=== PATIENT | female | born 1985 | race Caucasian/White ===

== ENCOUNTER 2022-10-10 15:43 | Emergency (ER) | payer MEDICAID, OTHER ==
[~2022-10-10] VITALS: Ht 175.3 cm; Wt 145.4 kg
[2022-10-10] MEDS ORDERED: DICYCLOMINE HCL (10MG/ML) 2 ML AMPULE IM ONE (16:00)
[2022-10-10] MEDS ORDERED: ONDANSETRON ODT 4 MG TAB PO ONE (16:00)
[2022-10-10 16:05] LABS: Basophils # (auto) 0 10 ^3/uL (0-0.2); Basophils % (auto) 0.4 % (0.0-2.0); Eosinophils # (auto) 0.3 10 ^3/uL (0-0.8); Eosinophils % (auto) 3.2 % (0.0-7.0); Hematocrit 43.1 % (36.0-46.0); Hemoglobin 14.3 g/dL (12.2-16.2); Lymphocytes # (auto) 3.2 10 ^3/uL (0.4-5.4); Lymphocytes % (auto) 34.2 % (10.0-50.0); Mean Corpuscular Hemoglobin 31.3 pg (28.0-32.0); Mean Corpuscular Hgb Conc. 33.2 g/dL (32.0-36.0); Mean Corpuscular Volume 94.5 fL (80.0-100.0); Monocytes # (auto) 0.6 10 ^3/uL (0-1.3); Monocytes % (auto) 6.2 % (0.0-12.0); Neutrophils # (auto) 5.2 10 ^3/uL (1.6-8.6); Nucleated Red Blood Cells % 0.1 %; Red Blood Cells 4.57 10^6/uL (4.0-5.20); White Blood Cell 9.4 10^3/uL (4.4-10.8)
[2022-10-10 16:14] LABS: BUN/Creatinine Ratio 10.5; Calcium 9.1 mg/dL (8.5-10.1); Potassium 4.1 mmol/L (3.5-5.1)
[2022-10-10 16:15] LABS: Albumin 3.4 g/dL (3.4-5.0)
[2022-10-10 16:17] LABS: Bilirubin, Total 0.4 mg/dL (0.2-1.0); Total Protein 7.5 g/dL (6.4-8.2)
[2022-10-10 20:48] LABS: Urine Bacteria FEW /hpf (None Seen); Urine Blood Negative /uL (Negative); Urine Mucus FEW (None Seen); Urine Specific Gravity 1.026 (1.001-1.035); Urine WBC 4 /hpf (0 - 5)
[2022-10-10] MEDS ORDERED: HYDROcodone-ACET 10/325MG TAB PO ONE (22:00)
[2022-10-11] MEDS ORDERED: IBUP800T26 PO (00:05)
[2022-10-11] MEDS ORDERED: HYDR-3651 OR (00:05)
[2022-10-11 00:15] VITALS: BP 97/72
== END 2022-10-11 00:20 | disposition home or self-care (01) ==
LOC: ER 15:43
DX: K76.0 Fatty (change of) liver, not elsewhere classified (principal)
CPT/HCPCS: 36415; 74176; 80053; 81001; 83690; 83880; 84484; 85025; 96372; 99285; J0500; Q0162

== ENCOUNTER 2025-06-17 12:54 | Emergency (ER) | payer MEDICAID ==
[~2025-06-17] VITALS: Ht 175.3 cm; Wt 141.1 kg
[~2025-06-17 12:54] MED LIST: HYDR-3651 OR; IBUP-1455 PO
[2025-06-17 13:26] LABS: Hematocrit 42.6 % (36.0-46.0); Hemoglobin 14.2 g/dL (12.2-16.2); Mean Corpuscular Hemoglobin 31.4 pg (28.0-32.0); Mean Corpuscular Volume 94.1 fL (80.0-100.0); Nucleated Red Blood Cells % 0.1 %
[2025-06-17 13:40] LABS: Alanine Aminotransferase 14 U/L (7-40); Albumin 4.4 g/dL (3.2-4.8); Alkaline Phosphatase 91 U/L (46-116); Anion Gap 9 (5-15); BUN/Creatinine Ratio 7.4 (10.0-20.0); Bilirubin, Total 0.5 mg/dL (0.2-1.0); Carbon Dioxide 27 mmol/L (20-31); Chloride 107 mmol/L (98-107); Glucose 89 mg/dL (74-106); Potassium 3.8 mmol/L (3.5-5.1); Sodium 143 mmol/L (136-145); Total Protein 7.7 g/dL (5.7-8.2)
--- NOTE | 2025-06-17 13:41 | DVH ---
INDICATION: Right upper quadrant TECHNIQUE: Multiple real-time sonographic images of the abdomen were obtained. COMPARISON: None FINDINGS: Increased echogenicity of the hepatic parenchyma suggesting steatosis.. The liver measures 14.01 cm. No intrahepatic biliary ductal dilatation is noted. Gallbladder is surgically removed. Common bile duct measures 8.04 mm The right kidney measures 9.35 cm. No hydronephrosis. The pancreas is not well visualized due to obscuration from bowel gas. The visualized portions of the IVC and aorta are grossly unremarkable. IMPRESSION: 1. 14 cm liver with changes suggesting steatosis 2. Gallbladder has been surgically removed 3. Right kidney measures 9.35 cm. There is no hydronephrosis
[2025-06-17 13:43] LABS: Blood Urea Nitrogen 6 mg/dL (9-23)
[2025-06-17 13:55] LABS: Calcium 8.9 mg/dL (8.7-10.4)
[2025-06-17 14:02] LABS: Lipase 34 U/L (12-53)
--- NOTE | 2025-06-17 15:04 | ED.PDOC ---
GI ASSESSMENT HPI Comments HPI: Amalia 39 y.o female presents to the ED for a complaint of RUQ and LLQ pain that radiates to her back and pelvic region x 2 months. Patient reports pain worsens when she is sitting and improves when she stands up. Patient too an at home test 2 days resulting negative. She denies any nausea, vomiting, d iarrhea, fever, chills, or any other symptom. Past Medical History: Asthma and liver cirrhosis. Past Surgical History: Cholecystectomy Social History:Tobacco abuse Allergies: Denies [place]: ABD PAIN HPI: Poor Historian. Painful the last two months intermittent was when she sits down resolves when she stands up. History of liver cirrhosis. REVIEW OF SYSTEMS: CONSTITUTIONAL: Denies acute: fever, diaphoresis, chills, generalized weakness. HEAD: Denies acute: headache, photophobia Eyes: Denies acute: Double vision, vision loss, eye pain, eye discharge. EARS: Denies acute: tinnitus, hearing loss, ear discharge, ear pain, THROAT: Denies acute: sore throat, swelling, difficulty swallowing , pain with swallowing, change in voice. NECK: Denies acute: neck pain, neck swelling, stiff neck. HEART: Denies acute : chest pain, palpitations, LUNGS: Denies acute: SOB, wheezing, cough, hemoptysis ABDOMEN: Denies acute: Nausea, Vomiting, diarrhea, melena , hematemesis, hematochezia SKIN: Denies acute: rash, redness, lesions, itchiness. EXTREMITIES: Denies acute: calf pain, numbness, tingling, weakness, denies pain in extremity. Denies acute: Low back pain. Neuro: Denies acute: focal neurological deficit, motor or sensory focal neurological deficit, tremors, seizure like activity, confusion, dizziness, change in mental status, loss of bowel or bladder function, cauda equina like symptoms. : Denies acute: dysuria, hematuria, flank pain, increase in urinary frequency. PSYCH: Denies acute: hallucination, suicidal ideation, homicidal ideation. FEMALE: Denies acute: abnormal vaginal bleeding, foul odor, unusual discharge. PHYSICAL EXAM: General: ----mild----acute distress, awake and alert. Head: normocephalic, atraumatic. Neck: supple, trachea is midline, no swelling. Throat: Normal phonation. Eyes:, no erythema, no purulent discharge, no proptosis, no icterus. Heart: regular rate, regular rhythm, no significant murmur appreciated. Lungs: no apparent respiratory distress, Able to speak in full sentences. No wheezing, no rhonchi, no crackles. No stridors Clear to auscultation bilaterally. Abdomen: Right upper quad tender to palpation, non distended, soft, no guarding, no rebound, + bowel sounds. Morbidly obese Neuro: Awake, Alert, oriented to name, self, situation, follows commands GCS=15. Speech is normal. Skin: no petechia, no purpura, no cyanosis, non-pale, not jaundice. Lower extremities: --no - Pitting edema no deformity, no focal swelling, no calf TTP. Makes eye contact. moves all four extremities. Face: no apparent facial droop. No CVA tenderness to percussion bilaterally. Ambulating in the ED independently. ED COURSE: DISCLAIMER: This medical document was created using an electronic medical record system with voice recognition software and computerized dictation system. Although this document has been carefully reviewed, there might still be some phonetic and typographical errors. Occasional wrong-word or "sound-alike" substitutions may have occurred due to the inherent limitations of voice recognition software. These areas are purely typographical due to imperfections of the software programs and do not reflect any compromise in the patient's medical care. Please read the chart carefully and recognize, using context, where these substitutions have occurred. Chief Complaint: Abdominal Pain Time Seen by MD: 14:57 Primary Care Provider: JERRY Reviewed Notes: Allergies Allergies: Coded Allergies: Nitrofurantoin (Verified Allergy, Unknown, 06/21/25) Home Meds Active Scripts Nitrofurantoin Monohydrate Mac (Macrobid) 100 Mg Cap, 100 MG PO BID for 7 Days, #14 CAP Prov:GUSTAVO SMALLS DO 06/17/25 Hydrocodone-Ibuprofen (HYDROCODONE/IBUPROFEN) 1 Tab Tab, 1 TAB OR Q8HP PRN, #20 TAB Prov:BRUCE LEMON PAC 10/11/22 Ibuprofen Micronized (Ibuprofen) 800 Mg Tab, 800 MG PO Q8HP PRN, #20 TAB Prov:BRUCE LEMON PAC 10/11/22 Information Source: Patient Mode of Arrival: Ambulatory Past Medical History PAST MEDICAL HISTORY: Asthma, Liver Surgical History: Denies all surgeries [employer] History: No Pertinent [employer] History Family History Family History: Reviewed,noncontributory to illness, No family hx of Cancer, No family hx of DM, No family hx of Heart lorena, No family hx of HTN, No family hx ofKidney lorena, No family hx of Liver lorena, No family hx of Lung lorena, No family hx of Stroke Social History Smoker: Non-Smoker Alcohol: Denies ETOH Use Drugs: Denies Drug Use Was a procedure done? Was a procedure done?: No GI differential Dx Differential Diagnosis: Other (DDX include Diverticulitis, colitis, gastroenteritis, acute abdomen, SBO, enteritis, constipation, volvulus, appe ndicitis, Gallbladder disease, choledocolithiasis, ascending cholangitis, pancreatitis, intraAbdominal mass/neoplasm, hepatitis, UTI, pylonephritis, kidney stone, aneurysm, dissection, Inflammatory bowel disease, gastroparesis, ischemic bowel,,,,,,ovarian torsion, ovarian cyst/mass, tubo-ovarian abscess, , ectopic , PID, STD.) X-Ray, Labs, Meds, VS Vital Signs Date Time Temp Pulse Resp B/P (MAP) Pulse Ox O2 Delivery O2 Flow Rate FiO2 06/17/25 15:46 98.4 78 19 125/89 (101) 97 98.4 06/17/25 12:56 98.1 110 18 138/88 98 98.1 Lab Test 06/17/25 13:17 06/17/25 13:00 Range/Units White Blood Count 7.9 4.4-10.8 10^3/uL Red Blood Count 4.52 4.0-5.20 10^6/uL Hemoglobin 14.2 12.2-16.2 g/dL Hematocrit 42.6 36.0-46.0 % Mean Corpuscular Volume 94.1 80.0-100.0 fL Mean Corpuscular Hemoglobin 31.4 28.0-32.0 pg Mean Corpuscular Hemoglobin Concent 33.3 32.0-36.0 g/dL Red Cell Distribution Width 13.2 11.8-14.3 % Platelet Count 348 140-450 10^3/uL Mean Platelet Volume 6.8 L 6.9-10.8 fL Neutrophils (%) (Auto) 52.4 37.0-80.0 % Lymphocytes (%) (Auto) 37.3 10.0-50.0 % Monocytes (%) (Auto) 6.2 0.0-12.0 % Eosinophils (%) (Auto) 3.8 0.0-7.0 % Basophils (%) (Auto) 0.3 0.0-2.0 % Neutrophils # (Auto) 4.2 1.6-8.6 10 ^3/uL Lymphocytes # (Auto) 3.0 0.4-5.4 10 ^3/uL Monocytes # (Auto) 0.5 0-1.3 10 ^3/uL Eosinophils # (Auto) 0.3 0-0.8 10 ^3/uL Basophils # (Auto) 0 0-0.2 10 ^3/uL Nucleated Red Blood Cells 0.1 % Sodium Level 143 136-145 mmol/L Potassium Level 3.8 3.5-5.1 mmol/L Chloride Level 107 98-107 mmol/L Carbon Dioxide Level 27 20-31 mmol/L Anion Gap 9 5-15 Blood Urea Nitrogen 6 L 9-23 mg/dL Creatinine 0.81 0.550-1.02 mg/dL Glomerular Filtration Rate Calc 95 >90 mL/min BUN/Creatinine Ratio 7.4 L 10.0-20.0 Serum Glucose 89 74-106 mg/dL Lactic Acid Level 0.8 0.4-2.0 mmol/L Calcium Level 8.9 8.7-10.4 mg/dL Total Bilirubin 0.5 0.2-1.0 mg/dL Aspartate Amino Transferase (AST) 15 13-40 U/L Alanine Aminotransferase (ALT) 14 7-40 U/L Alkaline Phosphatase 91 46-116 U/L Total Protein 7.7 5.7-8.2 g/dL Albumin 4.4 3.2-4.8 g/dL Lipase 34 12-53 U/L Urine Color Light-yellow Yellow Urine Clarity Turbid H Clear Urine pH 6.5 5.0-9.0 Urine Specific [place] 1.017 1.001-1.035 Urine Protein Negative Negative Urine Ketones Negative Negative Urine Blood Negative Negative /uL Urine Nitrite Negative Negative Urine Bilirubin Negative Negative Urine Urobilinogen Normal Negative mg/dL Urine Leukocyte Esterase 2+ Negative /uL Urine RBC 3 0 - 4 /hpf Urine Microscopic WBC 8 H 0-5 /HPF Urine Squamous Epithelial Cells Few <5 /hpf Urine Bacteria None seen None Seen /hpf Urine Mucus Few None Seen Urine Glucose Normal Normal mg/dL Urine Test Negative Negative [address] [address] Ph: [phone] DIAGNOSTIC IMAGING Diagnostic Imaging Report : [id number] Signed PATIENT: JAELYN TOBARCT: [id number] UNIT: [id number] : 1985 LOC: ER ROOM / BED: / AGE / SEX: 39 / F ADM STATUS: REG ER SERVICE 1311 ORDERING PHYSICIAN: GUSTAVO SMALLS DO PROCEDURE(s): ABDL - ABDOMEN LIMITED REASON: Right upper quadrant ORDER NUMBER(s): [id number], ACCESSION NUMBER(s): [id number] INDICATION: Right upper quadrant TECHNIQUE: Multiple real-time sonographic images of the abdomen were obtained. COMPARISON: None FINDINGS: Increased echogenicity of the hepatic parenchyma suggesting s teatosis.. The liver measures 14.01 cm. No intrahepatic biliary ductal dilatation is noted. Gallbladder is surgically removed. Common bile duct measures 8.04 mm The right kidney measures 9.35 cm. No hydronephrosis. The pancreas is not well visualized due to obscuration from bowel gas. The visualized portions of the IVC and aorta are grossly unremarkable. IMPRESSION: 1. 14 cm liver with changes suggesting steatosis 2. Gallbladder has been surgically removed 3. Right kidney measures 9.35 cm. There is no hydronephrosis ATED BY: KATIE ONEILL Jr., DO DICTATED DATE/TIME: 06/17/25 133 SIGNED BY: KATIE ONEILL Jr., SIGNED DATE/TIME: 06/17/251338 CC: [address] [address] Ph: [phone] DIAGNOSTIC IMAGING Diagnostic Imaging Report : [id number] Signed PATIENT: JAELYN TOBARCT: [id number] UNIT: [id number] : 1985 LOC: ER ROOM / BED: / AGE / SEX: 39 / F ADM STATUS: REG ER SERVICE 1502 ORDERING PHYSICIAN: GUSTAVO SMALLS DO PROCEDURE(s): ABPL - CT AB PEL WO CON-NO ORAL OR IV REASON: RUQ ABD PAIN ORDER NUMBER(s): [id number], ACCESSION NUMBER(s): [id number] Exam: CT CT AB PEL WO CON-NO ORAL OR IV History: RUQ ABD PAIN Comparison Study: CT ABD PELVIS WO CONTRAST on DOS: 10/10/22 Technique: Multidetector spiral CT of the abdomen was performed from lung bases to pubic symphysis. Imaging was performed without IV contrast. Axial, coronal and sagittal multiplanar reformats were obtained from the axial data set by the technologist. Radiation Dose : 1. Abdomen/Pelvis: CTDIvol 27.8 mGy, DLP 1542 mGy*cm. Findings: Evaluation of solid organs is limited due to lack of intravenous contrast use. Lung Bases: No acute or significant lung base finding. Normal heart size. No pleural or pericardial effusion. Liver: The liver is normal in size. No focal lesions. Gallbladder and Biliary Tree: Gallbladder is surgically absent. Spleen: Unremarkable Pancreas: The pancreas is grossly normal in appearance. Adrenal Glands: Unremarkable Kidneys: Kidneys are grossly normal without calculi or hydronephrosis. Bladder: Grossly unremarkable for degree of distention. Bowel: The stomach is grossly normal in appearance. Small bowel and colon are normal in caliber and distribution. Normal appendix is visualized in the right lower quadrant without findings of appendicitis. Ascites: Absent Lymphadenopathy: No mesenteric, retroperitoneal or periportal lymphadenopathy. Abdominal Wall and Mesentery: Unremarkable. Vasculature: The visualized abdominal aorta is normal in size and caliber. Evaluation of abdominal and pelvic vessels is limited due to lack of intravenous contrast. Pelvic Organs: Unremarkable Musculoskeletal: No aggressive focal bony lesions, acute fractures or dislocation. IMPRESSION: 1. No acute abdominal or pelvic findings. Radiation optimization: All CT scans at this facility use at least one of these dose optimization techniques: automated exposure control mA and/or kV adjustment per patient size (includes targeted exams where dose is matched to clinical indication) or iterative reconstruction. ATED BY: GRETCHEN FUNG MD DICTATED DATE/TIME: 06/17/251646 SIGNED BY: GRETCHEN FUNG MD SIGNED DATE/TIME: 06/17/251646 CC: Time of 1ST Reevaluation: 15:04 Reevaluation 1ST: Unchanged Patient Education/Counseling: Diagnosis, Treatment Family Education/Counseling: No Family Present Comments MDM: patient presented with the above HPI.-abdominal/pelvic pain----workup was initiated. patient was found with the above mentioned diagnosis. the following medications were ordered: please refer to order lists of meds and tests obtained by myself Dr. Smalls. Patient ED course and VS have been stabilized. Patient has been reassessed in the ED and remained in a stable condition. Pertinent incidental findings were discussed with the patient and/or family. Patient/family voices understanding and is agreeable with plan. Patient has been observed in the ED adequate length of time to insure improvement/stability. Escalation of care considered: Consideration of escalation to observation or admission Both pelvic ultrasound and CT scan of the abdomen and pelvis were obtained. Patient was DISCHARGED home in a stable condition. All the reports of any imaging studies that were ordered by myself were reviewed by myself. Departure 1 Departure Time of Disposition: 17:17 Impression: Primary Impression: Urinary tract infection Disposition: 01 HOME / SELF CARE / HOMELESS Condition: Stable Additional Instructions: Additional instructions: Please read all instructions provided in this packet carefully. You MUST follow-up with your primary care/family doctor in 1 to 2 days. If you are unable to see your primary care/family doctor, please return to our emergency room for re-assessment and re-evaluation in 1 to 2 days. Return to the emergency room here in our facility or to the nearest ER [facility] if your symptoms change or worsen. CONSULTATIONS: you MUST Follow-up for consultation as soon as possible with: -gastroenterology and urology in 1-2 days. Please call for appointment. You MUST call the consultants office yourself to make an appointment. You may need to arrange that through your insurance and/or your primary/family doctor. If you are unable to see the financial analysis consultant in 1 to 2 days, you must return to our emergency room (or any other ER of your choice) for re-assessment and re- evaluation. Adequate fluid hydration. Although you have been discharged from the Emergency Department, this does not mean that you have a "clean bill of health". No definitive diagnosis for your symptoms has been made today. It is possible that you are in the process of developing a serious illness. This is why you must return to the ED without fail if any new or worsening symptoms develop. Below is a copy of your radiological report for follow up: [place] [address] Ph: [phone] DIAGNOSTIC IMAGING Diagnostic Imaging Report : [id number] Signed PATIENT: ANJELICA TOBAR ACCT: [id number] UNIT: [id number] : 1985 LOC: ER ROOM / BED: / AGE / SEX: 39 / F ADM STATUS: REG ER SERVICE 1311 ORDERING PHYSICIAN: GUSTAVO SMALLS DO PROCEDURE(s): ABDL - ABDOMEN LIMITED REASON: Right upper quadrant ORDER NUMBER(s): [id number], ACCESSION NUMBER(s): [id number] INDICATION: Right upper quadrant TECHNIQUE: Multiple real-time sonographic images of the abdomen were obtained. COMPARISON: None FINDINGS: Increased echogenicity of the hepatic parenchyma suggesting steatosis.. The liver measures 14.01 cm. No intrahepatic biliary ductal dilatation is noted. Gallbladder is surgically removed. Common bile duct measures 8.04 mm The right kidney measures 9.35 cm. No hydronephrosis. The pancreas is not well visualized due to obscuration from bowel gas. The visualized portions of the IVC and aorta are grossly unremarkable. IMPRESSION: 1. 14 cm liver with changes suggesting steatosis 2. Gallbladder has been surgically removed 3. Right kidney measures 9.35 cm. There is no hydronephrosis ATED BY: KATIE ONEILL Jr., DO DICTATED DATE/TIME: 06/17/251338 SIGNED BY: KATIE ONEILL Jr., SIGNED DATE/TIME: 06/17/251338 CC: [place] [address] Ph: [phone] DIAGNOSTIC IMAGING Diagnostic Imaging Report : [id number] Signed PATIENT: ANJELICA TOBAR ACCT: [id number] UNIT: [id number] : 1985 LOC: ER ROOM / BED: / AGE / SEX: 39 / F ADM STATUS: REG ER SERVICE 1502 ORDERING PHYSICIAN: GUSTAVO SMALLS DO PROCEDURE(s): ABPL - CT AB PEL WO CON-NO ORAL OR IV REASON: RUQ ABD PAIN ORDER NUMBER(s): [id number], ACCESSION NUMBER(s): [id number] Exam: CT CT AB PEL WO CON-NO ORAL OR IV History: RUQ ABD PAIN Comparison Study: CT ABD PELVIS WO CONTRAST on DOS: 10/10/22 Technique: Multidetector spiral CT of the abdomen was performed from lung bases to pubic symphysis. Imaging was performed without IV contrast. Axial, coronal and sagittal multiplanar reformats were obtained from the axial data set by the technologist. Radiation Dose : 1. Abdomen/Pelvis: CTDIvol 27.8 mGy, DLP 1542 mGy*cm. Findings: Evaluation of solid organs is limited due to lack of intravenous contrast use. Lung Bases: No acute or significant lung base finding. Normal heart size. No pleural or pericardial effusion. Liver: The liver is normal in size. No focal lesions. Gallbladder and Biliary Tree: Gallbladder is surgically absent. Spleen: Unremarkable Pancreas: The pancreas is grossly normal in appearance. Adrenal Glands: Unremarkable Kidneys: Kidneys are grossly normal without calculi or hydronephrosis. Bladder: Grossly unremarkable for degree of distention. Bowel: The stomach is grossly normal in appearance. Small bowel and colon are normal in caliber and distribution. Normal appendix is visualized in the right lower quadrant without findings of appendicitis. Ascites: Absent Lymphadenopathy: No mesenteric, retroperitoneal or periportal lymphadenopathy. Abdominal Wall and Mesentery: Unremarkable. Vasculature: The visualized abdominal aorta is normal in size and caliber. Evaluation of abdominal and pelvic vessels is limited due to lack of intravenous contrast. Pelvic Organs: Unremarkable Musculoskeletal: No aggressive focal bony lesions, acute fractures or dislocation. IMPRESSION: 1. No acute abdominal or pelvic findings. Radiation optimization: All CT scans at this facility use at least one of these dose optimization techniques: automated exposure control mA and/or kV adjustment per patient size (includes targeted exams where dose is matched to clinical indication) or iterative reconstruction. ATED BY: GRETCHEN FUNG MD DICTATED DATE/TIME: 06/17/251646 SIGNED BY: GRETCHEN FUNG MD SIGNED DATE/TIME: 06/17/251646 CC: e-Prescriptions Nitrofurantoin Monohydrate Mac (Macrobid) 100 Mg Cap 100 MG PO BID for 7 Days, #14 CAP Prov: GUSTAVO SMALLS DO 06/17/25 Discharged With: Self Critical Care Note Critical Care Time?: No I personally scribed for GUSTAVO SMALLS DO ([email or web address]) on 06/17/25 at 15:04. Electronically submitted by Suzanne Hawthorne ([facility]). I personally scribed for GUSTAVO SMALLS DO ([email or web address]) on 06/17/25 at 15:10. Electronically submitted by Suzanne Hawthorne ([facility]). I personally scribed for GUSTAVO SMALLS DO ([email or web address]) on 06/17/25 at 17:19. Electronically submitted by Suzanne Hawthorne ([facility]). GUSTAVO SMALLS DO Jun 17, 2025 15:04
[2025-06-17 15:42] LABS: Urine Protein, UAD Negative (Negative)
[2025-06-17 15:46] VITALS: BP 125/89; PULSE 78; RESP 19; TEMP 98.4; O2SAT 97
--- NOTE | 2025-06-17 16:49 | DVH ---
Exam: CT CT AB PEL WO CON-NO ORAL OR IV History: RUQ ABD PAIN Comparison Study: CT ABD PELVIS WO CONTRAST on DOS: 10/10/22 Technique: Multidetector spiral CT of the abdomen was performed from lung bases to pubic symphysis. Imaging was performed without IV contrast. Axial, coronal and sagittal multiplanar reformats were ob tained from the axial data set by the technologist. Radiation Dose : 1. Abdomen/Pelvis: CTDIvol 27.8 mGy, DLP 1542 mGy*cm. Findings: Evaluation of solid organs is limited due to lack of intravenous contrast use. Lung Bases: No acute or significant lung base finding. Normal heart size. No pleural or pericardial effusion. Liver: The liver is normal in size. No focal lesions. Gallbladder and Biliary Tree: Gallbladder is surgically absent. Spleen: Unremarkable Pancreas: The pancreas is grossly normal in appearance. Adrenal Glands: Unremarkable Kidneys: Kidneys are grossly normal without calculi or hydronephrosis. Bladder: Grossly unremarkable for degree of distention. Bowel: The stomach is grossly normal in appearance. Small bowel and colon are normal in caliber and d istribution. Normal appendix is visualized in the right lower quadrant without findings of appendici tis. Ascites: Absent Lymphadenopathy: No mesenteric, retroperitoneal or periportal lymphadenopathy. Abdominal Wall and Mesentery: Unremarkable. Vasculature: The visualized abdominal aorta is normal in size and caliber. Evaluation of abdominal a nd pelvic vessels is limited due to lack of intravenous contrast. Pelvic Organs: Unremarkable Musculoskeletal: No aggressive focal bony lesions, acute fractures or dislocation. IMPRESSION: 1. No acute abdominal or pelvic findings. Radiation optimization: All CT scans at this facility use at least one of these dose optimization yari hniques: automated exposure control mA and/or kV adjustment per patient size (includes targeted exam s where dose is matched to clinical indication) or iterative reconstruction.
[2025-06-17] MEDS ORDERED: NITR-87 PO (17:18)
== END 2025-06-17 17:34 | disposition home or self-care (01) ==
LOC: ER 12:55
DX: N39.0 Urinary tract infection, site not specified (principal); J45.909 Unspecified asthma, uncomplicated; Z90.49 Acquired absence of other specified parts of digestive tract; Z72.0 Tobacco use; Z79.899 Other long term (current) drug therapy
CPT/HCPCS: 36415; 74176; 76705; 80053; 81001; 81025; 83605; 83690; 85025; 96365; 99285; J0696

== ENCOUNTER 2025-06-21 08:58 | Inpatient (IN) | payer MEDICAID ==
[~2025-06-21] VITALS: Ht 175.3 cm; Wt 146.5 kg
[~2025-06-21 08:58] MED LIST changes: +NITR-87 PO
--- NOTE | 2025-06-21 09:49 | ED.PDOC ---
GI ASSESSMENT HPI Comments This is a 39 year old female presenting to the ED with chief complaint of abdominal pain. Patient reports that she has been experiencing generalized abdominal pain with associated radiation of pain into her back and N/V for the past week. Patient relays that her pain has been constant, but with intermittent intensity. Patient denies any diarrhea, fever, chills, dizziness, or chest pain. Chief Complaint: Abdominal Pain Time Seen by MD: 09:40 Primary Care Provider: JERRY Matamoros Notes: Nurses Notes, Medications, Allergies Allergies: Coded Allergies: Nitrofurantoin (Verified Allergy, Unknown, 06/21/25) Home Meds Active Scripts Nitrofurantoin Monohydrate Mac (Macrobid) 100 Mg Cap, 100 MG PO BID for 7 Days, #14 CAP Prov:GUSTAVO SMALLS DO 06/17/25 Hydrocodone-Ibuprofen (HYDROCODONE/IBUPROFEN) 1 Tab Tab, 1 TAB OR Q8HP PRN, #20 TAB Prov:BRUCE LEMON PAC 10/11/22 Ibuprofen Micronized (Ibuprofen) 800 Mg Tab, 800 MG PO Q8HP PRN, #20 TAB Prov:BRUCE LEMON PAC 10/11/22 Information Source: Patient Mode of Arrival: Ambulatory Timing: Weeks Duration: Since onset Prehospital treatment: None Quality: Sharp Vomitus: Watery Stool: Normal Severity: Moderate Recent: None Recent Hx of: None Pain Location: Diffuse Modifying Factors: Nothing Associated sign and symptoms: Nausea, Vomiting, Abdominal Pain Past Medical History PAST MEDICAL HISTORY: Asthma, Liver Surgical History: Denies all surgeries LAUNDROMAT MANAGER History: Denies all LAUNDROMAT MANAGER Hx, No Pertinent LAUNDROMAT MANAGER History Family History Family History: Reviewed,noncontributory to illness, No family hx of Cancer, No family hx of DM, No family hx of Heart lorena, No family hx of HTN, No family hx ofKidney lorena, No family hx of Liver lorena, No family hx of Lung lorena, No family hx of Stroke Social History Smoker: Non-Smoker Alcohol: Denies ETOH Use Drugs: Denies Drug Use Lives In: Home Constitutional: denies: chills, diaphoresis, fatigue, fever, malaise, sweats, weakness, others EENTM: denies: blurred vision, double vision, ear bleeding, ear discharge, ear drainage, ear pain, ear ringing, eye pain, eye redness, hearing loss, mouth pain, mouth swelling, nasal discharge, nose bleeding, nose congestion, nose pain, photophobia, tearing, throat pain, throat swelling, voice changes, others Respiratory: denies: cough, hemoptysis, orthopnea, SOB at rest, shortness of breath, SOB with excertion, stridor, wheezing, others Cardiovascular: denies: chest pain, dizzy spells, diaphoresis, Dyspnea on exertion, edema, irregular heart beat, left arm pain, lightheadedness, palpitations, PND, syncope, others Gastrointestinal: reports: abdominal pain, nausea, vomiting; denies: abdomen distended, blood streaked bowels, constipated, diarrhea, dysphagia, difficulty swallowing, hematemesis, melena, poor appetite, poor fluid intake, rectal bleeding, rectal pain, others Genitourinary: denies: abnormal vagina bleeding, burning, dyspareunia, dysuria, flank pain, frequency, hematuria, incontinence, pain, , vagina discharge, urgency, others Neurological: denies: dizziness, fainting, headache, left sided numbness, left sided weakness, numbness, paresthesia, pre-existing deficit, right sided numbness, right sided weakness, seizure, speech problems, tingling, tremors, weakness, others Musculoskeletal: reports: back pain; denies: gout, joint pain, joint swelling, muscle pain, muscle stiffness, neck pain, others Integumetry: denies: bruises, change in color, change in hair/nails, dryness, laceration, lesions, lumps, rash, wounds, others Allergic/Immunocompromised: denies: Difficulty Healing, Frequent Infections, Hives, Itching, others Hematologic/Lymphatic: denies: anemia, blood clots, easy bleeding, easy bruising, swollen glands, others Endocrine: denies: excessive hunger, excessive sweating, excessive thirst, excessive urination, flushing, intolerance to cold, intolerance to heat, unexplained weight gain, unexplained weight loss, others Psychiatric: denies: anxiety, bipolar disorder, depression, hopeless, panic disorder, schizophrenia, sleepless, suicidal, others All Other Systems: Reviewed and Negative Physical Exam General Appearance: No Apparent Distress, Normal HEENT: Normal ENT Inspection, Pharynx Normal, TMs Normal Neck: Full Range of Motion, Non-Tender, Normal, Normal Inspection Respiratory: Chest Non-Tender, Lungs Clear, No Accessory Muscle Use, No Respiratory Distress, Normal Breath Sounds Cardiovascular: No Edema, No JVD, No Murmur, No Gallop, Normal Peripheral Pulses, Regular Rate/Rhythm Breast Exam: Deferred Gastrointestinal: No Organomegaly, No Pulsatile Mass, Normal Bowel Sounds, Soft, Tenderness (Diffuse abdominal tenderness) Genitalia: Deferred Pelvic: Deferred Rectal: Deferred Extremities: No calf tenderness, Normal capillary refill, Normal inspection, Normal range of motion, Non-tender, No pedal edema Musculoskeletal : Apperance: Normal Neurologic: Alert, vacuum cleaner assembler II-XII nml as Tested, No Motor Deficits, Normal Affect, Normal Mood, No Sensory Deficits Cerebellar Function: Normal Reflexes: Normal Skin: Dry, Normal Color, Warm Lymphatic: No Adenopathy Was a procedure done? Was a procedure done?: No GI differential Dx Differential Diagnosis: Angina/NV, Gastroenteritis, GI hemorrhage, Inflammatory BD, PID, UTI, Dehydration, Electrolyte Imbalance X-Ray, Labs, Meds, VS Vital Signs Date Time Temp Pulse Resp B/P (MAP) Pulse Ox O2 Delivery O2 Flow Rate FiO2 06/21/25 15:43 87 17 130/84 (99) 98 06/21/25 12:28 62 16 157/91 (113) 100 06/21/25 08:59 97.8 71 18 130/94 95 97.8 Lab Test 06/21/25 14:20 06/21/25 14:19 06/21/25 09:20 Range/Units Urine Test Negative Negative Urine Color Yellow Yellow Urine Clarity Turbid H Clear Urine pH 5.5 5.0-9.0 Urine Specific [place] 1.025 1.001-1.035 Urine Protein Negative Negative Urine Ketones Negative Negative Urine Blood Negative Negative /uL Urine Nitrite Negative Negative Urine Bilirubin Negative Negative Urine Urobilinogen Normal Negative mg/dL Urine Leukocyte Esterase 2+ Negative /uL Urine RBC 4 0 - 4 /hpf Urine Microscopic WBC 7 H 0-5 /HPF Urine Squamous Epithelial Cells Many <5 /hpf Urine Bacteria Few H None Seen /hpf Urine Hyaline Casts Few 0 - 2 /lpf Urine Mucus Few None Seen Urine Glucose Normal Normal mg/dL White Blood Count 6.6 4.4-10.8 10^3/uL Red Blood Count 4.62 4.0-5.20 10^6/uL Hemoglobin 14.5 12.2-16.2 g/dL Hematocrit 43.5 36.0-46.0 % Mean Corpuscular Volume 94.1 80.0-100.0 fL Mean Corpuscular Hemoglobin 31.3 28.0-32.0 pg Mean Corpuscular Hemoglobin Concent 33.2 32.0-36.0 g/dL Red Cell Distribution Width 13.0 11.8-14.3 % Platelet Count 338 140-450 10^3/uL Mean Platelet Volume 7.2 6.9-10.8 fL Neutrophils (%) (Auto) 60.6 37.0-80.0 % Lymphocytes (%) (Auto) 28.6 10.0-50.0 % Monocytes (%) (Auto) 5.3 0.0-12.0 % Eosinophils (%) (Auto) 5.3 0.0-7.0 % Basophils (%) (Auto) 0.2 0.0-2.0 % Neutrophils # (Auto) 4.0 1.6-8.6 10 ^3/uL Lymphocytes # (Auto) 1.9 0.4-5.4 10 ^3/uL Monocytes # (Auto) 0.4 0-1.3 10 ^3/uL Eosinophils # (Auto) 0.4 0-0.8 10 ^3/uL Basophils # (Auto) 0 0-0.2 10 ^3/uL Nucleated Red Blood Cells 0.1 % Sodium Level 142 136-145 mmol/L Potassium Level 3.9 3.5-5.1 mmol/L Chloride Level 107 98-107 mmol/L Carbon Dioxide Level 27 20-31 mmol/L Anion Gap 8 5-15 Blood Urea Nitrogen 9 9-23 mg/dL Creatinine 0.78 0.550-1.02 mg/dL Glomerular Filtration Rate Calc 100 >90 mL/min BUN/Creatinine Ratio 11.5 10.0-20.0 Serum Glucose 89 74-106 mg/dL Calcium Level 8.8 8.7-10.4 mg/dL Time of 1ST Reevaluation: 10:36 Reevaluation 1ST: Unchanged Patient Education/Counseling: Diagnosis, Treatment Family Education/Counseling: No Family Present SEPSIS Sepsis Screen Date sepsis recognized/suspect: Jun 21, 2025 Time Sepsis recognized/suspect: 09 Recent Procedure: No On Antibiotic Therapy: No Respiratory Rate >20: No Heart Rate >90: No Temp<36 C (96.8 F) or >38.3 C: No SBP <90 or MAP <65 mmHG: No New Acute Mental Status Change: No Is the patient on CPAP, BIPAP,: No Physician Orders Ct Ab Pel Wo Con-No Oral Or Iv (06/21/25 11:52) Vital Signs Date Time Temp Pulse Resp B/P (MAP) Pulse Ox O2 Delivery O2 Flow Rate FiO2 06/21/25 15:43 87 17 130/84 (99) 98 06/21/25 12:28 62 16 157/91 (113) 100 06/21/25 08:59 97.8 71 18 130/94 95 97.8 Laboratory Tests Test 06/21/25 09:20 White Blood Count 6.6 10^3/uL (4.4-10.8) Departure 1 Departure Time of Disposition: 16:01 (Patient presented with abdominal pain that was concerning for possible appendicits, gastritis, cholecystitis, colitis, gastroenteritis, sbo, or orther possible surgical emergency. Data: 1. I ordered and reviewed the result of at least 3 labs including a CBC, BMP, and Urinalysis. 2. I independently interpreted the following tests: CT Abdomen and Pelvis is concerning for benign abdomen .Risk:This patient has a high risk of morbidity due to further diagnostic testing or treatment and may suffer from an acute abdominal process disorder. Workup reveals intractable abdominal pain and patient should be admitted for further workup. and possible expert consultation. ) Impression: Primary Impression: Intractable abdominal pain Additional Impression: Vomiting Disposition: ADMITTED INPATIENT Admit to: Med Surg Condition: Serious Critical Care Note Critical Care Time?: Yes Critical care comment: Intractable abdominal pain Authorized and Performed by: Sophie Escamilla MD Total critical care time: Approximately 37 minutes Due to a high probability of clinically significant, life threatening deterioration, the patient required my highest level of preparedness to intervene emergently and I personally spent this critical care time directly and personally managing the patient. This critical care time included obtaining a history; examining the patient; pulse oximetry; ordering and review of studies; arranging urgent treatment with development of a management plan; evaluation of patient's response to treatment; frequent reassessment; and, discussions with other providers. This critical care time was performed to assess and manage the high probability of imminent, life-threatening deterioration that could result in multi-organ failure. It was exclusive of separately billable procedures and treating other patients and teaching time. Please see my other sections and the rest of the note for further information on patient assessment and treatment. Stability Stability form required: No Heart Score Heart Score: Heart Score Response (Comments) Value History N/A 0 EKG N/A 0 Age N/A 0 Risk Factors N/A 0 Troponin N/A 0 Total 0 I personally scribed for SOPHIE ESCAMILLA MD ([email or web address]) on 06/21/25 at 09:49. Electronically submitted by Junior Longoria ([email or web address]). SOPHIE ESCAMILLA MD Jun 21, 2025 09:49
[2025-06-21 10:00] LABS: Hematocrit 43.5 % (36.0-46.0); Hemoglobin 14.5 g/dL (12.2-16.2); Mean Corpuscular Hemoglobin 31.3 pg (28.0-32.0); Mean Corpuscular Volume 94.1 fL (80.0-100.0); Nucleated Red Blood Cells % 0.1 %
[2025-06-21 10:08] LABS: Anion Gap 8 (5-15); Carbon Dioxide 27 mmol/L (20-31); Chloride 107 mmol/L (98-107); Potassium 3.9 mmol/L (3.5-5.1); Sodium 142 mmol/L (136-145)
[2025-06-21 10:09] LABS: Calcium 8.8 mg/dL (8.7-10.4)
[2025-06-21 10:14] LABS: BUN/Creatinine Ratio 11.5 (10.0-20.0); Blood Urea Nitrogen 9 mg/dL (9-23); Glucose 89 mg/dL (74-106)
[2025-06-21 14:35] LABS: Urine Protein, UAD Negative (Negative)
--- NOTE | 2025-06-21 15:27 | DVH ---
EXAM: CT CT AB PEL WO CON-NO ORAL OR IV HISTORY: abdominal pain COMPARISON: CT CT AB PEL WO CON-NO ORAL OR IV on DOS: 06/17/25, CT ABD PELVIS WO CONTRAST on DOS: 10/10 TECHNIQUE: Helical CT images of the abdomen and pelvis were performed without IV contrast. Sagittal a nd coronal reformatted images were obtained. This CT exam was performed using one or more of the foll owing dose reduction techniques: Automated exposure control, adjustment of the mA and/or kv according to patient size, or the use of iterative reconstruction techniques. Radiation Dose: Abdomen/Pelvis: CTDIvol 26.36 mGy, DLP 1560.39 mGy*cm. FINDINGS: CT abdomen: The lung bases are clear. The heart is not enlarged. There is a small sliding hiatal kenney ia. The liver is diffusely fatty density The gallbladder is surgically absent. The noncontrast liver, spleen, pancreas, kidneys, and adrenal glands are unremarkable. No abdominal aortic aneurysm. CT pelvis: No abnormal bowel dilatation or free air. There is low volume free fluid in the pelvis. Th e appendix and urinary bladder are unremarkable. There is mild lumbar and lower thoracic degenerative disc disease. IMPRESSION: 1. Hepatic steatosis. 2. Small hiatal hernia. 3. Low volume free fluid in the pelvis, likely physiologic. 4. No evidence of bowel obstruction, acute appendicitis, or other acute process in the abdomen or pel vis.[id number]
[2025-06-21] MEDS: MORPHINE SULFATE 4 MG/ML SYR/VIAL IV ONE (16:29)
[2025-06-21] MEDS: ONDANSETRON HCL 4 MG/2 ML VIAL IV ONE (16:30)
[2025-06-21] MEDS: SODIUM CHLORIDE 0.9% 1,000 ML IV ONE (16:30)
--- NOTE | 2025-06-21 17:30 | DVHHPRES ---
History of Present Illness Resident Creating Document: JANICE MUÑIZ History of Present Illness Patient is a 39-year-old female with past medical history of asthma, presented to [facility] ED with complaint of abdominal pain that began approximately two weeks ago. She describes the pain as stabbing in nature, rated 10/10 in intensity, and constant. The pain is diffuse and generalized, with radiation to the back, pelvis, middle back, and chest. She reports that the pain is exacerbated by bending forward and partially relieved by lying down. Associated symptoms include nausea and vomiting, which have been intermittent since the onset of pain. She denies any fever or chills. She also reports a history of constipation for the past two months, during which she has been taking lactulose. However, she notes that lactulose causes watery diarrhea. She denies any recent travel, sick contacts, or dietary changes. No history of similar episodes in the past. She was seen in the ED on 06/17/2025 for urinary tract infection and was discharged with nitrofurantoin for 5 days. We admitted her to hospital for further evaluation and management. Pulmonary: Asthma Past Surgical History: Cholecystectomy Family History: Cancer Family History Paternal grandmother: Breast cancer. Maternal grandmother: Liver cancer Drugs: Marijuana Past Social History Denies smoking cigarette. Drinking alcohol for 10 years, 2 months ago quit. Smoking weeds more than 10 years. 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 Review of Systems Constitutional: Yes: Fever, Chills Cardiovascular: Chest Pain Gastrointestinal: Abdominal Pain, Constipation Musculoskeletal: back pain, leg pain Allergies: Coded Allergies: Nitrofurantoin (Verified Allergy, Unknown, 06/21/25) Exam Vital Signs Vital Signs Date Time Temp Pulse Resp B/P (MAP) Pulse Ox O2 Delivery O2 Flow Rate FiO2 06/21/25 16:29 83 17 138/83 06/21/25 15:43 98 06/21/25 08:59 97.8 97.8 Exam General Appearance: Cooperative. Mild distress. Well developed. Well nourished. NAD Head Exam: Normal inspection Neck Exam: Normal inspection. Non-tender. Normal alignment Pulmonary/Respiratory: Chest non-tender. Clear bilateral breath sounds, no crackles, no wheezing. Cardiovascular/Chest: Regular rate and rhythm. No murmurs. No JVD. Peripheral Pulses: 2+ Radial (R). 2+ Radial (L). 2+ Pedal (R). 2+ Pedal (L) Abdominal Exam: Tenderness (Diffuse abdominal tenderness). Normal bowel sounds. Soft. normal abdomen, no visible veins. No hepatospenomegaly. No masses Ankle Exam: Negative ankle edema Lower extremities: Negative lower extremity edema Neuro/Mental Status: A&O x4. Coherent. Thoughts/Psych: Normal thought pattern. Appropriate mood and affect. Good judgement and insight Skin Exam: Normal inspection. Normal color. Warm. Dry Labs/Xrays Labs Test 06/21/25 14:20 06/21/25 14:19 06/21/25 09:20 Range/Units Urine Test Negative Negative Urine Color Yellow Yellow Urine Clarity Turbid H Clear Urine pH 5.5 5.0-9.0 Urine Specific [place] 1.025 1.001-1.035 Urine Protein Negative Negative Urine Ketones Negative Negative Urine Blood Negative Negative /uL Urine Nitrite Negative Negative Urine Bilirubin Negative Negative Urine Urobilinogen Normal Negative mg/dL Urine Leukocyte Esterase 2+ Negative /uL Urine RBC 4 0 - 4 /hpf Urine Microscopic WBC 7 H 0-5 /HPF Urine Squamous Epithelial Cells Many <5 /hpf Urine Bacteria Few H None Seen /hpf Urine Hyaline Casts Few 0 - 2 /lpf Urine Mucus Few None Seen Urine Glucose Normal Normal mg/dL White Blood Count 6.6 4.4-10.8 10^3/uL Red Blood Count 4.62 4.0-5.20 10^6/uL Hemoglobin 14.5 12.2-16.2 g/dL Hematocrit 43.5 36.0-46.0 % Mean Corpuscular Volume 94.1 80.0-100.0 fL Mean Corpuscular Hemoglobin 31.3 28.0-32.0 pg Mean Corpuscular Hemoglobin Concent 33.2 32.0-36.0 g/dL Red Cell Distribution Width 13.0 11.8-14.3 % Platelet Count 338 140-450 10^3/uL Mean Platelet Volume 7.2 6.9-10.8 fL Neutrophils (%) (Auto) 60.6 37.0-80.0 % Lymphocytes (%) (Auto) 28.6 10.0-50.0 % Monocytes (%) (Auto) 5.3 0.0-12.0 % Eosinophils (%) (Auto) 5.3 0.0-7.0 % Basophils (%) (Auto) 0.2 0.0-2.0 % Neutrophils # (Auto) 4.0 1.6-8.6 10 ^3/uL Lymphocytes # (Auto) 1.9 0.4-5.4 10 ^3/uL Monocytes # (Auto) 0.4 0-1.3 10 ^3/uL Eosinophils # (Auto) 0.4 0-0.8 10 ^3/uL Basophils # (Auto) 0 0-0.2 10 ^3/uL Nucleated Red Blood Cells 0.1 % Sodium Level 142 136-145 mmol/L Potassium Level 3.9 3.5-5.1 mmol/L Chloride Level 107 98-107 mmol/L Carbon Dioxide Level 27 20-31 mmol/L Anion Gap 8 5-15 Blood Urea Nitrogen 9 9-23 mg/dL Creatinine 0.78 0.550-1.02 mg/dL Glomerular Filtration Rate Calc 100 >90 mL/min BUN/Creatinine Ratio 11.5 10.0-20.0 Serum Glucose 89 74-106 mg/dL Calcium Level 8.8 8.7-10.4 mg/dL SEPSIS Sepsis Screen Date sepsis recognized/suspect: Jun 21, 2025 Time Sepsis recognized/suspect: 900 Recent Procedure: No On Antibiotic Therapy: No Respiratory Rate >20: No Heart Rate >90: No Temp<36 C (96.8 F) or >38.3 C: No SBP <90 or MAP <65 mmHG: No New Acute Mental Status Change: No Is the patient on CPAP, BIPAP,: No Physician Orders Ct Ab Pel Wo Con-No Oral Or Iv (06/21/25 11:52) Sodium Chloride Lock (Saline Lock Ns) (06/21/25 22:00) 0.9% Ns 1000 Ml (06/21/25 17:15) Ondansetron Hcl (Zofran) (06/21/25 17:15) Complete Blood Count (06/22/25 04:00) Morphine Sulfate Injection (06/21/25 17:15) Lipase (06/21/25 17:08) Chest Xray 1 View (06/21/25 17:08) Hepatic Panel (06/21/25 17:08) Admit (06/21/25 17:08) Notify Of Changes From Base (06/21/25 17:08) Full Liq Diet (06/21/25 Dinner) LIVER (06/21/25 17:08) Acute Hepatitis Panel (06/21/25 17:08) PTPTT (06/21/25 17:08) Lactulose Oral (06/21/25 17:15) Lactulose Oral (06/21/25 22:00) Bisacodyl Ec Tablet (Dulcolax Ec Tablet) (06/21/25 17:15) Tap Water Enema (06/21/25 17:08) Drug Screen (06/21/25 17:08) Urine Bacterial Culture (06/21/25 17:08) Basic Metabolic Panel (06/22/25 04:00) Vital Signs Date Time Temp Pulse Resp B/P (MAP) Pulse Ox O2 Delivery O2 Flow Rate FiO2 06/21/25 16:29 83 17 138/83 06/21/25 15:43 87 17 130/84 (99) 98 06/21/25 12:28 62 16 157/91 (113) 100 Laboratory Tests Test 06/21/25 09:20 White Blood Count 6.6 10^3/uL (4.4-10.8) Medications Medications Dose Ordered Sig/Jesus Route Start Time Stop Time Status Last Admin Dose Admin Morphine Sulfate 4 mg ONCE ONCE IV 06/21/25 15:15 06/21/25 15:18 DC 06/21/25 16:29 4 MG Ondansetron HCl 4 mg ONCE ONCE IV 06/21/25 15:15 06/21/25 15:18 DC 06/21/25 16:30 4 MG Sodium Chloride 1,000 ml @ 1,000 mls/hr Q1H ONCE IV 06/21/25 16:15 06/21/25 17:14 DC 06/21/25 16:30 1,000 MLS/HR Assessment/Plan Assessment/Plan # acute intractable abdominal pain likely due to severe constipation # Hepatic steatosis # Constipation CT abdomen shows hepatic steatosis and small hiatal hernia. No evidence of bowel obstruction, acute appendicitis, or other acute process in the abdomen or pelvis. Liver US shows No clear cause for pain. Moderate hepatic steatosis with hepatomegaly. IV NS Zofran Morphine 2mg Hepatic Panel Lipase Acute hepatitis panel Lactulose Dulcolax Tap water enema # h/o asthma Diet: Full liquid Goals of care: Full code, discussed for >30 minutes on 06/21/25 Plan discussed with patient Plan discussed with Dr. Arauz Plan discussed with: Patient My Orders Orders - JANICE MUÑIZ Procedure Category Date Status Time Sodium Chloride Lock PHA 06/21/25 Transmitted (Saline Lock Ns) 22:00 0.9% Ns 1000 Ml PHA 06/21/25 Transmitted 17:15 Ondansetron Hcl PHA 06/21/25 Transmitted (Zofran) 17:15 Complete Blood Count LAB 06/22/25 Verified 04:00 Morphine Sulfate PHA 06/21/25 Verified Injection 17:15 Lipase LAB 06/21/25 Transmitted 17:08 Chest Xray 1 View XY 06/21/25 Transmitted 17:08 Hepatic Panel LAB 06/21/25 Transmitted 17:08 Admit ADMIT 06/21/25 Verified 17:08 Notify Of Changes DAMARI 06/21/25 Verified From Base 17:08 Full Liq Diet DIET 06/21/25 Verified Dinner LIVER US 06/21/25 Verified 17:08 Acute Hepatitis Panel LAB 06/21/25 Transmitted 17:08 PTPTT LAB 06/21/25 Transmitted 17:08 Lactulose Oral PHA 06/21/25 Verified 17:15 Lactulose Oral PHA 06/21/25 Verified 22:00 Bisacodyl Ec Tablet PHA 06/21/25 Verified (Dulcolax Ec Tablet) 17:15 Tap Water Enema ORDERS 06/21/25 Verified 17:08 Drug Screen LAB 06/21/25 Transmitted 17:08 Urine Bacterial NOEMÍ 06/21/25 Transmitted Culture 17:08 Basic Metabolic Panel LAB 06/22/25 Verified 04:00 Date of Service: Jun 21, 2025 Billing Provider: YENY ARAUZ MD Common Visit Codes: 88389-KIILUBC INP/OBS CARE (HIGH) Secondary Visit Codes: 39397-KIPUPPON CARE PLAN 30 MINUTES JANICE MUÑIZ Jun 21, 2025 17:30 YENY ARAUZ MD Jun 24, 2025 21:15
[2025-06-21] MEDS ORDERED: MORPHINE SULFATE 4 MG/ML SYR/VIAL IV PRN (17:45)
[2025-06-21 18:19] LABS: Albumin 4.5 g/dL (3.2-4.8); Alkaline Phosphatase 93 U/L (46-116); Bilirubin, Total 1.0 mg/dL (0.2-1.0); Total Protein 7.8 g/dL (5.7-8.2)
[2025-06-21 18:20] LABS: Alanine Aminotransferase < 9 U/L (7-40); Bilirubin, Direct 0.3 mg/dL (<0.3)
--- NOTE | 2025-06-21 18:21 | DVH ---
CHEST RADIOGRAPH Indication: chest pain Technique: Single frontal view of the chest was obtained COMPARISON: None FINDINGS: Lines and Tubes: None Lungs: Clear Pleura: No effusion. No pneumothorax. Cardiomediastinal contours: Unremarkable Bones: Unremarkable IMPRESSION: 1. No acute disease.
[2025-06-21 18:27] LABS: INR 0.95 (0.9-1.15); Partial Thromboplastin Time 29.7 SEC (24.5-34.5); Prothrombin Time 10.1 sec (9.3-11.8)
[2025-06-21] MEDS: BISACODYL 5 MG EC TAB PO ONE (18:29)
[2025-06-21] MEDS: LACTULOSE 20Gm/30ML SOLN PO ONE (18:29)
[2025-06-21 18:34] VITALS: PULSE 73; RESP 17; O2SAT 97
[2025-06-21] MEDS: SODIUM CHLORIDE 0.9% 1,000 ML IV SCH (18:41)
--- NOTE | 2025-06-21 18:53 | DVH ---
INDICATION: abdominal pain TECHNIQUE: Multiple real-time sonographic images were obtained of the right upper quadrant. COMPARISON: US ABDOMEN LIMITED on DOS: 06/17/25 FINDINGS: Liver is enlarged measuring 17.7 cm with moderate to severe hepatic steatosis. There is no intrahepatic or extrahepatic ductal dilatation. The common duct measures 0.6 cm. Gallbladder has been resected. The right kidney measures 9.9 cm. The right kidney is normal in contour, size, and shape. The echogen icity is normal. There is no hydronephrosis. The pancreas is not well visualized due to overlying bowel gas. IMPRESSION: No clear cause for pain. Moderate hepatic steatosis with hepatomegaly.
[2025-06-21 19:23] LABS: Lipase 30 U/L (12-53)
[2025-06-21 22:03] LABS: Cannabinoid Screen, Urine Pos (NEGATIVE)
[2025-06-21 22:05] LABS: Amphetamine Screen, Urine Neg (NEGATIVE); Barbiturate Scree,Urine Neg (NEGATIVE); Benzodiazephine Screen, Urine Neg (NEGATIVE); Cocaine Screen, Urine Neg (NEGATIVE); Opiate Scree,Urine Neg (NEGATIVE); Phencyclidine Screen, Urine Neg (NEGATIVE)
[2025-06-21] MEDS: SODIUM CHLOR 0.9% PF (SALINE LOCK) 10ML VIAL/SYR IV SCH (22:26)
[2025-06-21] MEDS: LACTULOSE 20Gm/30ML SOLN PO SCH (23:18)
[2025-06-22 04:37] LABS: Hematocrit 42.0 % (36.0-46.0); Hemoglobin 13.7 g/dL (12.2-16.2); Mean Corpuscular Hemoglobin 31.7 pg (28.0-32.0); Mean Corpuscular Volume 97.3 fL (80.0-100.0); Nucleated Red Blood Cells % 0.0 %
[2025-06-22 04:47] LABS: Anion Gap 9 (5-15); Carbon Dioxide 23 mmol/L (20-31); Potassium 3.9 mmol/L (3.5-5.1); Sodium 139 mmol/L (136-145)
[2025-06-22 04:53] LABS: BUN/Creatinine Ratio 10.0 (10.0-20.0); Glucose 86 mg/dL (74-106)
[2025-06-22 05:00] LABS: Blood Urea Nitrogen 7 mg/dL (9-23); Calcium 8.7 mg/dL (8.7-10.4); Chloride 107 mmol/L (98-107)
[2025-06-22 09:19] VITALS: BP 119/69; PULSE 77; RESP 16; TEMP 98; O2SAT 97
[2025-06-22] MEDS: ONDANSETRON HCL 4 MG/2 ML VIAL IV PRN (09:48)
[2025-06-22] MEDS: KETOROLAC TROMETH 30 MG/ML 1ML VIAL IV PRN (09:57)
[2025-06-22 14:22] VITALS: BP 114/68; PULSE 72; RESP 18; TEMP 98.2; O2SAT 96
--- NOTE | 2025-06-22 14:37 | DVHPNRES ---
Progress Note Date Seen: Jun 22, 2025 Resident Creating Document: JANICE MUÑIZ RESIDENT Medical Necessity Reason Pt with a Central, PICC or Fol: No (RN) Subjective Review of Systems Patient is a 39-year-old female with past medical history of asthma, presented to [facility] ED with complaint of abdominal pain that began approximately two weeks ago. She describes the pain as stabbing in nature, rated 10/10 in intensity, and constant. The pain is diffuse and generalized, with radiation to the back, pelvis, middle back, and chest. She reports that the pain is exacerbated by bending forward and partially relieved by lying down. Associated symptoms include nausea and vomiting, which have been intermittent since the onset of pain. She denies any fever or chills. She also reports a history of constipation for the past two months, during which she has been taking lactulose. However, she notes that lactulose causes watery diarrhea. She denies any recent travel, sick contacts, or dietary changes. No history of similar episodes in the past. She was seen in the ED on 06/17/2025 for urinary tract infection and was discharged with nitrofurantoin for 5 days. Past medical history: Asthma Past surgical history: Cholecystectomy Family History: Paternal grandmother: Breast cancer. Maternal grandmother: Liver cancer Social & Personal history: Denies smoking cigarette. Drinking alcohol for 10 years, 2 months ago quit. Smoking weeds more than 10 years. 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 Allergies: Nitrofurantoin Patient seen and examined at bedside. Patient is alert and oriented to time, place person and responding to all questions. Constitutional: Yes: Fever, Chills Eyes: No Pain, No Vision change, No Conjunctivae inflammation, No Eyelid inflammation, No Other, No Redness ENT: No Ear pain, No Ear discharge, No Nose pain, No Nose discharge, No Nose congestion, No Mouth pain, No Mouth swelling, No Throat pain, No Throat swelling, No Other Cardiovascular: Chest Pain, No Palpitations, No Orthopnea, No Paroxysmal No Dyspnea, No Edema, No Lt Headedness, No Other Respiratory: No Cough, No Dry, No Shortness of breath, No SOB with exertion, No Wheezing, No Hemoptysis, No Pleuritic Pain, No Sputum, No Other Gastrointestinal: No Nausea, No Vomiting, Abdominal Pain, No Diarrhea, Constipation, No Melena, No Hematochezia, No Other Genitourinary: No Dysuria, No Frequency, No Incontinence, No Hematuria, No Retention, No Other Musculoskeletal: No other, No neck pain, shoulder pain, No arm pain, No back pain, No hand pain, leg pain, No foot pain Skin: No Rash, No Lesions, No Jaundice, No Bruising, No Other Objective vital signs Vital Sign Date Time Temp Pulse Resp B/P (MAP) Pulse Ox O2 Delivery O2 Flow Rate FiO2 06/22/25 14:22 98.2 72 18 114/68 (83) 96 98.2 06/21/25 18:34 Room Air* 0 21 medications Current Medications Medications Dose Ordered Sig/Jesus Route Start Time Stop Time Status Last Admin Dose Admin Sodium Chloride 10 ml Q8HR IV 06/21/25 22:00 06/22/25 14:14 10 ML Sodium Chloride 1,000 ml @ 100 mls/hr Q10H IV 06/21/25 17:15 06/22/25 13:15 100 MLS/HR Ondansetron HCl 4 mg Q4HP PRN IV 06/21/25 17:15 06/22/25 09:48 4 MG Lactulose 30 ml BID PO 06/21/25 22:00 06/21/25 23:18 30 ML Ketorolac Tromethamine 15 mg Q6HPRN PRN IV 06/22/25 09:45 06/27/25 09:44 06/22/25 09:57 15 MG Examination General Appearance: Cooperative. Mild distress. Well developed. Well nourished. NAD Head Exam: Normal inspection Neck Exam: Normal inspection. Non-tender. Normal alignment Pulmonary/Respiratory: Chest non-tender. Clear bilateral breath sounds, no crackles, no wheezing. Cardiovascular/Chest: Regular rate and rhythm. No murmurs. No JVD. Peripheral Pulses: 2+ Radial (R). 2+ Radial (L). 2+ Pedal (R). 2+ Pedal (L) Abdominal Exam: Tenderness (Diffuse abdominal tenderness). Normal bowel sounds. Soft. normal abdomen, no visible veins. No hepatospenomegaly. No masses Ankle Exam: Negative ankle edema Lower extremities: Negative lower extremity edema Neuro/Mental Status: A&O x4. Coherent. Thoughts/Psych: Normal thought pattern. Appropriate mood and affect. Good judgement and insight Skin Exam: Normal inspection. Normal color. Warm. Dry laboratory and microbiology Laboratory Tests 06/22/25 04:03 Test 06/22/25 04:03 Range/Units Serum Glucose 86 74-106 mg/dL Microbiology Date/Time Source Procedure Growth Status 06/21/25 14:19 Voided Urine Urine Culture - Preliminary Resulted Labs and/or images reviewed: Labs reviewed by me, Image(s) reviewed by me Problem List/Assessment/Plan Problem List/Assessment/Plan # acute intractable abdominal pain likely due to severe constipation # Hepatic steatosis # Constipation CT abdomen shows hepatic steatosis and small hiatal hernia. No evidence of bowel obstruction, acute appendicitis, or other acute process in the abdomen or pelvis. Liver US shows No clear cause for pain. Moderate hepatic steatosis with hepatomegaly. Magnesium Citrate 150 ml once Tap water enema KUB IV NS Zofran Morphine 2mg Lactulose Dulcolax Ketorolac Tromethamine 15 mg GI consult # h/o asthma Diet: Full liquid Goals of care: Full code, discussed for >30 minutes on 06/22/25 Plan discussed with patient Plan discussed with Dr. Arauz Plan discussed with: Patient, Other (RN) My Orders My Orders Orders - JANICE MUÑIZ RESIDENT Procedure Category Date Status Time Sodium Chloride Lock PHA 06/21/25 In Process (Saline Lock Ns) 22:00 Sodium Chloride 0.9% PHA 06/21/25 In Process 17:15 Ondansetron Hcl PHA 06/21/25 In Process (Zofran) 17:15 Chest Xray 1 View XY 06/21/25 Resulted 17:08 Admit ADMIT 06/21/25 Transmitted 17:08 Notify Of Changes DAMARI 06/21/25 In Process From Base 17:08 Full Liq Diet DIET 06/21/25 Transmitted Dinner LIVER US 06/21/25 Resulted 17:08 Acute Hepatitis Panel LAB 06/21/25 In Process 17:08 Lactulose Oral PHA 06/21/25 In Process 22:00 Tap Water Enema ORDERS 06/21/25 Transmitted 17:08 Urine Bacterial NOEMÍ 06/21/25 In Process Culture 17:08 Complete Blood Count LAB 06/23/25 Verified 04:00 Comprehensive LAB 06/23/25 Verified Metabolic Panel 04:00 Date of Service: Jun 22, 2025 Billing Provider: YENY ARAUZ MD Common Visit Codes: [id number] INP/OBS CARE(HIGH) MARY KAYESEQUIELSEGUNDO RESIDENT Jun 22, 2025 14:37 YENY ARAUZ MD Jun 24, 2025 21:16
[2025-06-22] MEDS: MAGNESIUM CITRATE SOLUTION 300 ML BTL PO ONE (14:43)
[2025-06-22 17:29] VITALS: BP 114/72; PULSE 74; RESP 18; TEMP 98.4; O2SAT 96
[2025-06-22 21:00] VITALS: BP 102/52; PULSE 84; RESP 18; TEMP 97.6; O2SAT 95
[2025-06-23] VITALS (8 sets, daily range): BP systolic 92–116; BP diastolic 45–67; PULSE 18–76; RESP 16–19; TEMP 96.6–98.5; O2SAT 95–100
[2025-06-23 06:50] LABS: Hematocrit 37.2 % (36.0-46.0); Hemoglobin 12.7 g/dL (12.2-16.2); Mean Corpuscular Hemoglobin 31.7 pg (28.0-32.0); Mean Corpuscular Volume 93.3 fL (80.0-100.0); Nucleated Red Blood Cells % 0.1 %
[2025-06-23 06:55] LABS: Alanine Aminotransferase 24 U/L (7-40); Albumin 3.7 g/dL (3.2-4.8); Alkaline Phosphatase 78 U/L (46-116); Anion Gap 7 (5-15); BUN/Creatinine Ratio 6.8 (10.0-20.0); Bilirubin, Total 0.9 mg/dL (0.2-1.0); Carbon Dioxide 26 mmol/L (20-31); Glucose 84 mg/dL (74-106); Potassium 3.5 mmol/L (3.5-5.1); Sodium 140 mmol/L (136-145); Total Protein 6.6 g/dL (5.7-8.2)
[2025-06-23 06:59] LABS: Blood Urea Nitrogen 5 mg/dL (9-23); Calcium 8.3 mg/dL (8.7-10.4); Chloride 107 mmol/L (98-107)
[2025-06-23 11:35] LABS: Hepatitis B Surface Antigen Negative (Negative)
[2025-06-23 11:45] LABS: Hepatitis C Antibody Negative (Negative)
--- NOTE | 2025-06-23 12:48 | DVH ---
Date: 06/23/2025 12:06 PM Examination: XY KUB ABDOMEN SINGLE VIEW History: pain Comparison: US ABDOMEN LIMITED on DOS: 06/17/25, CT ABD PELVIS WO CONTRAST on DOS: 10/10/22 TECHNIQUE: Frontal views of the abdomen was obtained. FINDINGS: Bowel gas pattern is unremarkable. The lung bases are unremarkable. No acute osseous abnormality identified. IMPRESSION: Nonobstructive bowel gas pattern.
--- NOTE | 2025-06-23 15:42 | DVHPNRES ---
Progress Note Date Seen: Jun 23, 2025 Resident Creating Document: JANICE MUÑIZ RESIDENT Medical Necessity Reason Pt with a Central, PICC or Fol: No (RN) Subjective Review of Systems Patient is a 39-year-old female with past medical history of asthma, presented to [facility] ED with complaint of abdominal pain that began approximately two weeks ago. She describes the pain as stabbing in nature, rated 10/10 in intensity, and constant. The pain is diffuse and generalized, with radiation to the back, pelvis, middle back, and chest. She reports that the pain is exacerbated by bending forward and partially relieved by lying down. Associated symptoms include nausea and vomiting, which have been intermittent since the onset of pain. She denies any fever or chills. She also reports a history of constipation for the past two months, during which she has been taking lactulose. However, she notes that lactulose causes watery diarrhea. She denies any recent travel, sick contacts, or dietary changes. No history of similar episodes in the past. She was seen in the ED on 06/17/2025 for urinary tract infection and was discharged with nitrofurantoin for 5 days. Patient was seen and examined at bedside. Overnight events were reviewed. Patient complain of constipation. Attempted digital rectal defecation to facilitate bowel movement. Objective vital signs Vital Sign Date Time Temp Pulse Resp B/P (MAP) Pulse Ox O2 Delivery O2 Flow Rate FiO2 06/23/25 13:00 98.3 68 19 92/63 (73) 98 98.3 06/21/25 18:34 Room Air* 0 21 Total Intake and Output 06/22/25 06/22/25 06/23/25 15:00 23:00 07:00 Intake Total 1200 ml 800 ml Output Total 600 ml Balance 600 ml 800 ml medications Current Medications Medications Dose Ordered Sig/Jesus Route Start Time Stop Time Status Last Admin Dose Admin Sodium Chloride 10 ml Q8HR IV 06/21/25 22:00 06/23/25 11:54 10 ML Ondansetron HCl 4 mg Q4HP PRN IV 06/21/25 17:15 06/22/25 22:34 4 MG Lactulose 30 ml BID PO 06/21/25 22:00 06/23/25 11:54 30 ML Ketorolac Tromethamine 15 mg Q6HPRN PRN IV 06/22/25 09:45 06/27/25 09:44 06/23/25 11:54 15 MG Examination General Appearance: Cooperative. Mild distress. Well developed. Well nourished. NAD Head Exam: Normal inspection Neck Exam: Normal inspection. Non-tender. Normal alignment Pulmonary/Respiratory: Chest non-tender. Clear bilateral breath sounds, no crackles, no wheezing. Cardiovascular/Chest: Regular rate and rhythm. No murmurs. No JVD. Peripheral Pulses: 2+ Radial (R). 2+ Radial (L). 2+ Pedal (R). 2+ Pedal (L) Abdominal Exam: Tenderness (Diffuse abdominal tenderness). Normal bowel sounds. Soft. normal abdomen, no visible veins. No hepatospenomegaly. No masses Ankle Exam: Negative ankle edema Lower extremities: Negative lower extremity edema Neuro/Mental Status: A&O x4. Coherent. Thoughts/Psych: Normal thought pattern. Appropriate mood and affect. Good judgement and insight Skin Exam: Normal inspection. Normal color. Warm. Dry Digital rectal defecation: patient passed a small amount of watery stool. No signs of solid stool or bleeding or trauma, palpable mass observed. laboratory and microbiology Laboratory Tests 06/23/25 05:57 06/23/25 05:52 Test 06/23/25 05:57 Range/Units Serum Glucose 84 74-106 mg/dL Microbiology Date/Time Source Procedure Growth Status 06/21/25 14:19 Voided Urine Urine Culture - Final Complete Labs and/or images reviewed: Labs reviewed by me, Image(s) reviewed by me Problem List/Assessment/Plan Problem List/Assessment/Plan # acute intractable abdominal pain likely due to severe constipation # Hepatic steatosis # Constipation CT abdomen shows hepatic steatosis and small hiatal hernia. No evidence of bowel obstruction, acute appendicitis, or other acute process in the abdomen or pelvis. Liver US shows No clear cause for pain. Moderate hepatic steatosis with hepatomegaly. Magnesium Citrate 150 ml once Tap water enema KUB - Bowel gas pattern is unremarkable. Nonobstructive bowel gas pattern. Urine Bacterial Culture >100,000 CFU/mL Mixed Gram Positive Lauren IV NS Zofran Morphine 2mg Lactulose Dulcolax Ketorolac Tromethamine 15 mg GI consult # h/o asthma Diet: Full liquid Goals of care: Full code, discussed for >30 minutes on 06/23/25 Plan discussed with patient Plan discussed with Dr. Gillis Plan discussed with: Patient, Other (RN, Niece) My Orders My Orders Orders - JANICE MUÑIZ Procedure Category Date Status Time Complete Blood Count LAB 06/24/25 Verified 04:00 Comprehensive LAB 06/24/25 Verified Metabolic Panel 04:00 Date of Service: Jun 23, 2025 Billing Provider: GAIL GILLIS MD Common Visit Codes: [id number] INP/OBS CARE(HIGH) JANICE MUÑIZ Jun 23, 2025 15:42 GAIL GILLIS MD Jun 23, 2025 22:20
[2025-06-23] MEDS: GOLYTELY 4L KIT PO ONE (17:25)
[2025-06-24] VITALS (10 sets, daily range): BP systolic 82–109; BP diastolic 47–71; PULSE 54–75; RESP 15–18; TEMP 97.3–98.9; O2SAT 95–100
[2025-06-24 07:09] LABS: Hematocrit 36.1 % (36.0-46.0); Hemoglobin 12.4 g/dL (12.2-16.2); Mean Corpuscular Hemoglobin 31.9 pg (28.0-32.0); Mean Corpuscular Volume 93.3 fL (80.0-100.0); Nucleated Red Blood Cells % 0.0 %
[2025-06-24 07:29] LABS: Alanine Aminotransferase 24 U/L (7-40); Alkaline Phosphatase 73 U/L (46-116); Anion Gap 10 (5-15); BUN/Creatinine Ratio 8.2 (10.0-20.0); Carbon Dioxide 25 mmol/L (20-31); Chloride 105 mmol/L (98-107); Glucose 77 mg/dL (74-106); Potassium 3.5 mmol/L (3.5-5.1); Sodium 140 mmol/L (136-145); Total Protein 6.5 g/dL (5.7-8.2)
[2025-06-24 07:30] LABS: Albumin 3.7 g/dL (3.2-4.8)
[2025-06-24] MEDS: SODIUM CHLORIDE 0.9% 500 ML IV ONE (07:30)
[2025-06-24 07:31] LABS: Bilirubin, Total 0.7 mg/dL (0.2-1.0)
[2025-06-24 07:33] LABS: Blood Urea Nitrogen 6 mg/dL (9-23); Calcium 8.2 mg/dL (8.7-10.4)
--- NOTE | 2025-06-24 10:33 | ECG ---
[facility] Test Date: 2025-06-24 Test Time: 10:31:58 Pat Name: ANJELICA TOBAR Department: Respiratoy Room: 0222T Gender: F Legal Internship: jose baez : 1985 Requested By: LOI GODOY Order Number: [id number] Reading MD: Reji Gamboa Measurements Intervals [place] Rate: 54 P: 0 DC: 0 QRS: 3 QRSD: 142 T: 1 QT: 459 QTc: 435 Interpretive Statements Atrial fibrillation Nonspecific intraventricular conduction delay Borderline abnrm T, anterolateral leads Electronically Signed On 06-24-2025 20:01:16 PDT by Reji Gamboa Please click the below link to view image of tracing.
[2025-06-24] MEDS: SODIUM CHLORIDE 0.9% 1,000 ML IV ONE (10:43)
[2025-06-24] MEDS: ACETAMINOPHEN 325 MG TAB PO PRN (10:44)
[2025-06-24] MEDS: CALCIUM CARB 500 MG CHEW TAB PO SCH (10:47)
[2025-06-24] MEDS ORDERED: GASTROGRAFIN 30 ML SOL ONE (13:16)
[2025-06-24] MEDS ORDERED: IOHEXOL 300 MG/ML 100ML BOTTLE IJ ONE (15:06)
--- NOTE | 2025-06-24 15:23 | DVHPNRES ---
Progress Note Date Seen: Jun 24, 2025 Resident Creating Document: JANICE MUÑIZ RESIDENT Medical Necessity Reason Pt with a Central, PICC or Fol: No (RN) Subjective Review of Systems Patient is a 39-year-old female with past medical history of asthma, presented to [facility] ED with complaint of abdominal pain that began approximately two weeks ago. She describes the pain as stabbing in nature, rated 10/10 in intensity, and constant. The pain is diffuse and generalized, with radiation to the back, pelvis, middle back, and chest. She reports that the pain is exacerbated by bending forward and partially relieved by lying down. Associated symptoms include nausea and vomiting, which have been intermittent since the onset of pain. She denies any fever or chills. She also reports a history of constipation for the past two months, during which she has been taking lactulose. However, she notes that lactulose causes watery diarrhea. She denies any recent travel, sick contacts, or dietary changes. No history of similar episodes in the past. She was seen in the ED on 06/17/2025 for urinary tract infection and was discharged with nitrofurantoin for 5 days. Patient was seen and examined at bedside. Overnight events were reviewed. The patient presents with severe constipation, chest pain, and persistent hypotension, especially after unsuccessful digital rectal defecation. Objective vital signs Vital Sign Date Time Temp Pulse Resp B/P (MAP) Pulse Ox O2 Delivery O2 Flow Rate FiO2 06/24/25 13:00 98.5 54 18 92/58 (69) 96 98.5 06/24/25 08:00 Room Air* 0 21 Total Intake and Output 06/23/25 06/23/25 06/24/25 15:00 23:00 07:00 Intake Total 900 ml 250 ml Balance 900 ml 250 ml medications Current Medications Medications Dose Ordered Sig/Jesus Route Start Time Stop Time Status Last Admin Dose Admin Sodium Chloride 10 ml Q8HR IV 06/21/25 22:00 06/24/25 13:21 10 ML Ondansetron HCl 4 mg Q4HP PRN IV 06/21/25 17:15 06/22/25 22:34 4 MG Lactulose 30 ml BID PO 06/21/25 22:00 06/24/25 08:55 30 ML Ketorolac Tromethamine 15 mg Q6HPRN PRN IV 06/22/25 09:45 06/27/25 09:44 06/23/25 21:34 15 MG Calcium Carbonate 500 mg BID PO 06/24/25 10:28 06/24/25 10:47 500 MG Acetaminophen 650 mg Q6HP PRN PO 06/24/25 10:15 06/24/25 10:44 650 MG Examination General Appearance: Cooperative. Mild distress. Well developed. Well nourished. NAD Head Exam: Normal inspection Neck Exam: Normal inspection. Non-tender. Normal alignment Pulmonary/Respiratory: Chest non-tender. Clear bilateral breath sounds, no crackles, no wheezing. Cardiovascular/Chest: Regular rate and rhythm. No murmurs. No JVD. Peripheral Pulses: 2+ Radial (R). 2+ Radial (L). 2+ Pedal (R). 2+ Pedal (L) Abdominal Exam: Tenderness (Diffuse abdominal tenderness). Normal bowel sounds. Soft. normal abdomen, no visible veins. No hepatospenomegaly. No masses Ankle Exam: Negative ankle edema Lower extremities: Negative lower extremity edema Neuro/Mental Status: A&O x4. Coherent. Thoughts/Psych: Normal thought pattern. Appropriate mood and affect. Good judgement and insight Skin Exam: Normal inspection. Normal color. Warm. Dry laboratory and microbiology Laboratory Tests 06/24/25 06:13 Test 06/24/25 06:13 Range/Units Serum Glucose 77 74-106 mg/dL Microbiology Date/Time Source Procedure Growth Status 06/21/25 14:19 Voided Urine Urine Culture - Final Complete Labs and/or images reviewed: Labs reviewed by me, Image(s) reviewed by me Problem List/Assessment/Plan Problem List/Assessment/Plan # acute intractable abdominal pain likely due to severe constipation # Hepatic steatosis # Constipation # fecal impaction CT abdomen shows hepatic steatosis and small hiatal hernia. No evidence of bowel obstruction, acute appendicitis, or other acute process in the abdomen or pelvis. CT abdomen pending Liver US shows No clear cause for pain. Moderate hepatic steatosis with hepatomegaly. Magnesium Citrate 150 ml once Tap water enema KUB - Bowel gas pattern is unremarkable. Nonobstructive bowel gas pattern. Urine Bacterial Culture >100,000 CFU/mL Mixed Gram Positive Lauren IV NS Zofran Morphine 2mg Lactulose Dulcolax Ketorolac Tromethamine 15 mg GI consult # Acute intractable chest pain due to above EKG- Atrial fibrillation. Nonspecific intraventricular conduction delay. Borderline abnrm T, anterolateral leads # h/o asthma Diet: Full liquid Goals of care: Full code, discussed for >30 minutes on 06/24/25 Plan discussed with patient Plan discussed with Dr. Gillis Plan discussed with: Patient, Other (RN) Date of Service: Jun 24, 2025 Billing Provider: GAIL GILLIS MD Common Visit Codes: [id number] INP/OBS CARE(HIGH) JANICE MUÑIZ RESIDENT Jun 24, 2025 15:23 GAIL GILLIS MD Jun 24, 2025 23:22
--- NOTE | 2025-06-24 17:11 | DVH ---
CLINICAL HISTORY: abdominal pain and constipation, r/o colonic mass TECHNIQUE: CT of the abdomen and pelvis was performed with intravenous contrast. This exam was perfor med according to our departmental dose optimization program. Up-to-date CT equipment and radiation do se reduction techniques are utilized as appropriate. 27.88 CTDIVol: 27.88 mGy DLP: 1392.75 mGy-cm WID: COMPARISON: CT CT AB PEL WO CON-NO ORAL OR IV on DOS: 06/21/25 FINDINGS: Lower Thorax: Unremarkable. Liver and Biliary system: Prior cholecystectomy, otherwise unremarkable. Spleen: Unremarkable. Adrenal Glands and Kidneys: Unremarkable. Pancreas and Retroperitoneum: Unremarkable. Aorta and Major Vessels: Unremarkable. Bowel, Mesentery and Peritoneal space: Normal caliber small and large bowel. Normal appendix. There i s oral contrast diffusely in the stomach, small and large bowel. There is no free air or fluid collec tion. Pelvis: Unremarkable. Abdominal wall and Osseous Structures: Mild lower thoracic and lumbar spondylosis. No destructive oss eous lesion. IMPRESSION: 1. No bowel obstruction, fluid collection, or free air. Normal appendix. 2. Prior cholecystectomy.
[2025-06-25] VITALS (8 sets, daily range): BP systolic 102–115; BP diastolic 46–77; PULSE 49–72; RESP 18–21; TEMP 37.1; O2SAT 95–98
[2025-06-25 07:09] LABS: Hematocrit 37.1 % (36.0-46.0); Hemoglobin 12.5 g/dL (12.2-16.2); Mean Corpuscular Hemoglobin 31.3 pg (28.0-32.0); Mean Corpuscular Volume 93.1 fL (80.0-100.0); Nucleated Red Blood Cells % 0.0 %
[2025-06-25 07:36] LABS: Alkaline Phosphatase 72 U/L (46-116); Anion Gap 9 (5-15); Calcium 8.7 mg/dL (8.7-10.4); Carbon Dioxide 25 mmol/L (20-31); Glucose 81 mg/dL (74-106); Potassium 3.7 mmol/L (3.5-5.1); Sodium 141 mmol/L (136-145); Total Protein 6.4 g/dL (5.7-8.2)
[2025-06-25 07:37] LABS: Albumin 3.7 g/dL (3.2-4.8)
[2025-06-25 07:38] LABS: Bilirubin, Total 0.5 mg/dL (0.2-1.0)
[2025-06-25 07:47] LABS: BUN/Creatinine Ratio 7.2 (10.0-20.0); Blood Urea Nitrogen < 5 mg/dL (9-23); Chloride 107 mmol/L (98-107)
[2025-06-25 07:48] LABS: Alanine Aminotransferase 19 U/L (7-40)
[2025-06-25] MEDS: SUCRALFATE 1 GM/10 ML ORAL SUSP PO ONE (13:53)
[2025-06-25] MEDS: PANTOPRAZOLE 40 MG/10 ML VIAL INJ IV ONE (13:53)
--- NOTE | 2025-06-25 14:52 | DVHDSRES ---
Discharge Summary Date of Admission Resident Creating Document: POLO SALEH Jun 21, 2025 at 17:08 Date of Discharge: Jun 25, 2025 Labs/Diagnostic Data: Laboratory Results Test 06/25/25 06:37 06/24/25 06:13 06/21/25 17:40 06/21/25 14:20 White Blood Count 5.9 10^3/uL (4.4-10.8) Red Blood Count 3.98 10^6/uL (4.0-5.20) Hemoglobin 12.5 g/dL (12.2-16.2) Hematocrit 37.1 % (36.0-46.0) Mean Corpuscular Volume 93.1 fL (80.0-100.0) Mean Corpuscular Hemoglobin 31.3 pg (28.0-32.0) Mean Corpuscular Hemoglobin Concent 33.7 g/dL (32.0-36.0) Red Cell Distribution Width 12.6 % (11.8-14.3) Platelet Count 283 10^3/uL (140-450) Mean Platelet Volume 6.9 fL (6.9-10.8) Neutrophils (%) (Auto) 58.6 % (37.0-80.0) Lymphocytes (%) (Auto) 30.1 % (10.0-50.0) Monocytes (%) (Auto) 7.8 % (0.0-12.0) Eosinophils (%) (Auto) 3.2 % (0.0-7.0) Basophils (%) (Auto) 0.3 % (0.0-2.0) Neutrophils # (Auto) 3.5 10 ^3/uL (1.6-8.6) Lymphocytes # (Auto) 1.8 10 ^3/uL (0.4-5.4) Monocytes # (Auto) 0.5 10 ^3/uL (0-1.3) Eosinophils # (Auto) 0.2 10 ^3/uL (0-0.8) Basophils # (Auto) 0 10 ^3/uL (0-0.2) Nucleated Red Blood Cells 0.0 % Sodium Level 141 mmol/L (136-145) Potassium Level 3.7 mmol/L (3.5-5.1) Chloride Level 107 mmol/L (98-107) Carbon Dioxide Level 25 mmol/L (20-31) Anion Gap 9 (5-15) Blood Urea Nitrogen < 5 mg/dL (9-23) Creatinine 0.69 mg/dL (0.550-1.02) Glomerular Filtration Rate Calc 114 mL/min (>90) BUN/Creatinine Ratio 7.2 (10.0-20.0) Serum Glucose 81 mg/dL (74-106) Calcium Level 8.7 mg/dL (8.7-10.4) Total Bilirubin 0.5 mg/dL (0.2-1.0) Aspartate Amino Transferase (AST) 17 U/L (13-40) Alanine Aminotransferase (ALT) 19 U/L (7-40) Alkaline Phosphatase 72 U/L (46-116) Total Protein 6.4 g/dL (5.7-8.2) Albumin 3.7 g/dL (3.2-4.8) Magnesium Level 2.2 mg/dL (1.6-2.6) Troponin I High Sensitivity < 3 ng/L (</=34) B-Type Natriuretic Peptide 13.08 pg/mL (0-100) Prothrombin Time 10.1 sec (9.3-11.8) Prothrombin Time INR 0.95 (0.9-1.15) Activated Partial Thromboplast Time 29.7 SEC (24.5-34.5) Direct Bilirubin 0.3 mg/dL (<0.3) Lipase 30 U/L (12-53) Hepatitis A IgM Antibody Negative Hepatitis B Surface Antigen Negative (Negative) Hepatitis B Core IgM Antibody Negative (Negative) Hepatitis C Antibody Negative (Negative) Urine Test Negative (Negative) Test 06/21/25 14:19 Urine Color Yellow (Yellow) Urine Clarity Turbid (Clear) Urine pH 5.5 (5.0-9.0) Urine Specific [place] 1.025 (1.001-1.035) Urine Protein Negative (Negative) Urine Ketones Negative (Negative) Urine Blood Negative /uL (Negative) Urine Nitrite Negative (Negative) Urine Bilirubin Negative (Negative) Urine Urobilinogen Normal mg/dL (Negative) Urine Leukocyte Esterase 2+ /uL (Negative) Urine RBC 4 /hpf (0 - 4) Urine Microscopic WBC 7 /HPF (0-5) Urine Squamous Epithelial Cells Many /hpf (<5) Urine Bacteria Few /hpf (None Seen) Urine Hyaline Casts Few /lpf (0 - 2) Urine Mucus Few (None Seen) Urine Glucose Normal mg/dL (Normal) Urine Opiates Screen Neg (NEGATIVE) Urine Fentanyl Screen Neg (NEGATIVE) Urine Barbiturates Screen Neg (NEGATIVE) Urine Phencyclidine Screen Neg (NEGATIVE) Urine Amphetamines Screen Neg (NEGATIVE) Urine Benzodiazepines Screen Neg (NEGATIVE) Urine Cocaine Screen Neg (NEGATIVE) Urine Cannabinoids Screen Pos (NEGATIVE) Other Laboratory Tests 06/25/25 06:37 Brief Hx & Hospital Course: Patient is a 39-year-old female with past medical history of asthma, presented to [facility] ED with complaint of abdominal pain that began approximately two weeks ago. She describes the pain as stabbing in nature, rated 10/10 in intensity, and constant. The pain is diffuse and generalized, with radiation to the back, pelvis, middle back, and chest. She reports that the pain is exacerbated by bending forward and partially relieved by lying down. Associated symptoms include nausea and vomiting, which have been intermittent since the onset of pain. She denies any fever or chills. She also reports a history of constipation for the past two months, during which she has been taking lactulose. However, she notes that lactulose causes watery diarrhea. She denies any recent travel, sick contacts, or dietary changes. No history of similar episodes in the past. She was seen in the ED on 06/17/2025 for urinary tract infection and was discharged with nitrofurantoin for 5 days. Brief hospital course: CT abdomen and pelvis was done due to her acute intractable abdominal pain which revealed hepatic steatosis and small hiatal hernia. No evidence of bowel obstruction, acute appendicitis or other acute process was noted. Liver ultrasound was reveals moderate hepatic steatosis with hepatomegaly. For her severe intractable pain due to constipation she was given magnesium citrate, lactulose, Dulcolax with no to minimal symptom relief. Manual disimpaction was attempted, which was unsuccessful due to high up impacted stool. Eventually the patient was GoLYTELY, which made her pass bowel movement with improvement in her abdominal pain. The patient also reported having symptoms of gastritis, which was relieved by Carafate. On the day of discharge, the patient was hemodynamically stable, was tolerating diet, patient and the partner verbalized understanding of the discharge plan. The patient was advised to follow up with PCP and DC clinic in 1 week. General Appearance: Cooperative. Mild distress. Well developed. Well nourished. NAD Head Exam: Normal inspection Neck Exam: Normal inspection. Non-tender. Normal alignment Pulmonary/Respiratory: Chest non-tender. Clear bilateral breath sounds, no crackles, no wheezing. Cardiovascular/Chest: Regular rate and rhythm. No murmurs. No JVD. Peripheral Pulses: 2+ Radial (R). 2+ Radial (L). 2+ Pedal (R). 2+ Pedal (L) Abdominal Exam: Tenderness (Diffuse abdominal tenderness). Normal bowel sounds. Soft. normal abdomen, no visible veins. No hepatospenomegaly. No masses Ankle Exam: Negative ankle edema Lower extremities: Negative lower extremity edema Neuro/Mental Status: A&O x4. Coherent. Thoughts/Psych: Normal thought pattern. Appropriate mood and affect. Good judgement and insight Skin Exam: Normal inspection. Normal color. Warm. Dry Operations or Procedures PATIENT: ANJELICA TOBAR ACCT: [id number] UNIT: [id number] : 1985 LOC: [facility] ROOM / BED: [facility] / A AGE / SEX: 39 / F ADM STATUS: ADM IN SERVICE 1009 ORDERING PHYSICIAN: LOI GRESHAM RESIDENT PROCEDURE(s): ABPLC - CT ABD PELVIS W CON-ORAL & IV REASON: abdominal pain and constipation, r/o colonic mass ORDER NUMBER(s): [id number], ACCESSION NUMBER(s): [id number] CLINICAL HISTORY: abdominal pain and constipation, r/o colonic mass TECHNIQUE: CT of the abdomen and pelvis was performed with intravenous contrast. This exam was performed according to our departmental dose optimization program. Up-to-date CT equipment and radiation dose reduction techniques are utilized as appropriate. 27.88 CTDIVol: 27.88 mGy DLP: 1392.75 mGy-cm WID: COMPARISON: CT CT AB PEL WO CON-NO ORAL OR IV on DOS: 06/21/25 FINDINGS: Lower Thorax: Unremarkable. Liver and Biliary system: Prior cholecystectomy, otherwise unremarkable. Spleen: Unremarkable. Adrenal Glands and Kidneys: Unremarkable. Pancreas and Retroperitoneum: Unremarkable. Aorta and Major Vessels: Unremarkable. Bowel, Mesentery and Peritoneal space: Normal caliber small and large bowel. Normal appendix. There is oral contrast diffusely in the stomach, small and large bowel. There is no free air or fluid collection. Pelvis: Unremarkable. Abdominal wall and Osseous Structures: Mild lower thoracic and lumbar spondylosis. No destructive osseous lesion. IMPRESSION: 1. No bowel obstruction, fluid collection, or free air. Normal appendix. 2. Prior cholecystectomy. PATIENT: ANJELICA TOBAR ACCT: [id number] UNIT: [id number] : 1985 LOC: [facility] ROOM / BED: [facility] / AGE / SEX: 39 / F ADM STATUS: ADM IN SERVICE 1133 ORDERING PHYSICIAN: LOI GRESHAM PROCEDURE(s): KUB - KUB ABDOMEN SINGLE VIEW REASON: abdominal distention ORDER NUMBER(s): [id number], ACCESSION NUMBER(s): [id number] Date: 06/23/2025 12:06 PM Examination: XY KUB ABDOMEN SINGLE VIEW History: pain Comparison: US ABDOMEN LIMITED on DOS: 06/17/25, CT ABD PELVIS WO CONTRAST on DOS: 10/10/22 TECHNIQUE: Frontal views of the abdomen was obtained. FINDINGS: Bowel gas pattern is unremarkable. The lung bases are unremarkable. No acute osseous abnormality identified. IMPRESSION: Nonobstructive bowel gas pattern. PATIENT: ANJELICA TOBAR ACCT: [id number] UNIT: [id number] : 1985 LOC: [facility] ROOM / BED: [address] [place] [address] AGE / SEX: 39 / F ADM STATUS: ADM IN SERVICE 1708 ORDERING PHYSICIAN: JANICE MUÑIZ PROCEDURE(s): LIVUS - LIVER REASON: abdominal pain ORDER NUMBER(s): [id number], ACCESSION NUMBER(s): [id number] INDICATION: abdominal pain TECHNIQUE: Multiple real-time sonographic images were obtained of the right upper quadrant. COMPARISON: US ABDOMEN LIMITED on DOS: 06/17/25 FINDINGS: Liver is enlarged measuring 17.7 cm with moderate to severe hepatic steatosis. There is no intrahepatic or extrahepatic ductal dilatation. The common duct measures 0.6 cm. Gallbladder has been resected. The right kidney measures 9.9 cm. The right kidney is normal in contour, size, and shape. The echogenicity is normal. There is no hydronephrosis. The pancreas is not well visualized due to overlying bowel gas. IMPRESSION: No clear cause for pain. Moderate hepatic steatosis with hepatomegaly. PATIENT: ANJELICA TOBAR ACCT: [id number] UNIT: [id number] : 1985 LOC: [facility] ROOM / BED: 1010-ER / A AGE / SEX: 39 / F ADM STATUS: ADM IN SERVICE 1708 ORDERING PHYSICIAN: JANICE MUÑIZ PROCEDURE(s): CXR1 - CHEST XRAY 1 VIEW REASON: chest pain ORDER NUMBER(s): [id number], ACCESSION NUMBER(s): [id number] CHEST RADIOGRAPH Indication: chest pain Technique: Single frontal view of the chest was obtained COMPARISON: None FINDINGS: Lines and Tubes: None Lungs: Clear Pleura: No effusion. No pneumothorax. Cardiomediastinal contours: Unremarkable Bones: Unremarkable IMPRESSION: 1. No acute disease. PATIENT: ANJELICA TOBAR ACCT: [id number] UNIT: [id number] : 1985 LOC: ER ROOM / BED: / AGE / SEX: 39 / F ADM STATUS: REG ER SERVICE 1152 ORDERING PHYSICIAN: SOPHIE RAMÍREZ MD PROCEDURE(s): ABPL - CT AB PEL WO CON-NO ORAL OR IV REASON: abdominal pain ORDER NUMBER(s): [id number], ACCESSION NUMBER(s): [id number] EXAM: CT CT AB PEL WO CON-NO ORAL OR IV HISTORY: abdominal pain COMPARISON: CT CT AB PEL WO CON-NO ORAL OR IV on DOS: 06/17/25, CT ABD PELVIS WO CONTRAST on DOS: 10/10/22 TECHNIQUE: Helical CT images of the abdomen and pelvis were performed without IV contrast. Sagittal and coronal reformatted images were obtained. This CT exam was performed using one or more of the following dose reduction techniques: Automated exposure control, adjustment of the mA and/or kv according to patient size, or the use of iterative reconstruction techniques. Radiation Dose: Abdomen/Pelvis: CTDIvol 26.36 mGy, DLP 1560.39 mGy*cm. FINDINGS: CT abdomen: The lung bases are clear. The heart is not enlarged. There is a small sliding hiatal hernia. The liver is diffusely fatty density The gallbladder is surgically absent. The noncontrast liver, spleen, pancreas, kidneys, and adrenal glands are unremarkable. No abdominal aortic aneurysm. CT pelvis: No abnormal bowel dilatation or free air. There is low volume free fluid in the pelvis. The appendix and urinary bladder are unremarkable. There is mild lumbar and lower thoracic degenerative disc disease. IMPRESSION: 1. Hepatic steatosis. 2. Small hiatal hernia. 3. Low volume free fluid in the pelvis, likely physiologic. 4. No evidence of bowel obstruction, acute appendicitis, or other acute process in the abdomen or pelvis. Condition at Discharge: Stable Final Diagnosis/Problems List # acute intractable abdominal pain likely due to severe constipation # Hepatic steatosis # Constipation # fecal impaction # h/o asthma #Chest pain ruled out ACS Discharge Disposition: Home Discharge Instruct/Medications Diet: Consistent carbohydrate Activity: No Restrictions, As Tolerated Follow Up/Referral: Follow up with PCP and DC clinic in 1 week. Medications: As per EMR Scheduled Pantoprazole Sodium Sesquihydr (Protonix), 40 MG PO QAM Polyethylene Glycol (Miralax), 17 GM PO DAILY Sucralfate (Carafate), 10 ML PO BID Discontinued Medications Hydrocodone-Ibuprofen (Hydrocodone/Ibuprofen), 1 TAB OR Q8HP PRN Ibuprofen Micronized (Ibuprofen), 800 MG PO Q8HP PRN Nitrofurantoin Monohydrate Mac (Macrobid), 100 MG PO BID Discharge Statement: "Patient was advised to return to the ER or call 911 if any headaches, dizziness, shortness of breath, chest pain, abdominal pain, bleeding, fevers, or worsening of medical condition. Patient was counseled about treatment plan, medications, possible side effects, patientverbalized understanding. All questions were answered to the best of my ability. This discharge took greater then 30 minutes in planning, reviewing documentation, counseling the patient, and discussing with other team members." ASSESSMENT ASSESSMENT Assessment Severe constipation with impacted stool Date of Service: Jun 25, 2025 Billing Provider: GAIL ANDERSON MD Common Visit Codes: 63054-ZVY/OBS DISCH DAY >30min POLO SALEH Jun 25, 2025 14:52 GAIL ANDERSON MD Jun 26, 2025 11:00
[2025-06-25] MEDS ORDERED: POLY33505 PO (15:30)
[2025-06-25] MEDS ORDERED: SUCR1SUS5 PO (15:30)
[2025-06-25] MEDS ORDERED: PANT40TA2 PO (15:30)
== END 2025-06-25 17:19 | disposition home or self-care (01) | DRG 247 ==
LOC: ER 08:58 → OVERFLOW 17:08 → CENTRAL 06-22 23:03 → TELE-CENTR 06-24 12:09
PROVIDERS: ADMIT Internal Medicine; ATTEND Internal Medicine
DX: K56.41 Fecal impaction (principal); J45.909 Unspecified asthma, uncomplicated; K44.9 Diaphragmatic hernia without obstruction or gangrene; K76.0 Fatty (change of) liver, not elsewhere classified; R07.9 Chest pain, unspecified; Z90.49 Acquired absence of other specified parts of digestive tract; Z80.3 Family history of malignant neoplasm of breast; Z80.8 Family history of malignant neoplasm of other organs or systems; Z88.3 Allergy status to other anti-infective agents
CPT/HCPCS: 36415; 71045; 74018; 74176; 74177; 76705; 80048; 80053; 80074; 80076; 80307; 81001; 81025; 83690; 83735; 83880; 84484; 85025; 85610; 85730; 87086; 93005; 96361; 96374; 96375; 99291; G0378; J1885; J2405; J2470

== ENCOUNTER 2025-08-16 22:51 | Emergency (ER) | payer MEDICAID ==
[~2025-08-16] VITALS: Ht 175.3 cm; Wt 135.0 kg
[~2025-08-16 22:51] MED LIST changes: -HYDR-3651 OR; -IBUP-1455 PO; -NITR-87 PO; +PANT40TA2 PO; +POLY33505 PO; +SUCR1SUS5 PO
[2025-08-16 23:29] LABS: Hematocrit 43.5 % (36.0-46.0); Hemoglobin 14.3 g/dL (12.2-16.2); Mean Corpuscular Hemoglobin 30.6 pg (28.0-32.0); Mean Corpuscular Volume 92.7 fL (80.0-100.0); Nucleated Red Blood Cells % 0.1 %
[2025-08-16 23:52] LABS: Alanine Aminotransferase 15 U/L (7-40); Albumin 4.5 g/dL (3.2-4.8); Alkaline Phosphatase 107 U/L (46-116); Anion Gap 8 (5-15); Calcium 9.1 mg/dL (8.7-10.4); Carbon Dioxide 27 mmol/L (20-31); Chloride 105 mmol/L (98-107); Lipase 34 U/L (12-53); Potassium 3.9 mmol/L (3.5-5.1); Sodium 140 mmol/L (136-145); Total Protein 8.0 g/dL (5.7-8.2)
[2025-08-16 23:53] LABS: Bilirubin, Total 0.6 mg/dL (0.2-1.0)
[2025-08-17 00:12] LABS: Blood Urea Nitrogen 7 mg/dL (9-23); Glucose 111 mg/dL (74-106)
[2025-08-17 01:09] LABS: BUN/Creatinine Ratio 8.3 (10.0-20.0)
[2025-08-17 01:13] VITALS: BP 109/76; PULSE 82; RESP 14; O2SAT 98
[2025-08-17] MEDS: ONDANSETRON ODT 4 MG TAB PO ONE (01:17)
[2025-08-17] MEDS: KETOROLAC TROMETH 60MG/2ML VIAL IM ONE (01:17)
[2025-08-17] MEDS: ACETAMINOPHEN 500 MG TAB or CAP PO ONE (01:17)
[2025-08-17] MEDS: FAMOTIDINE 20 MG TAB PO ONE (01:17)
[2025-08-17 01:29] LABS: Urine Protein, UAD TRACE (Negative)
--- NOTE | 2025-08-17 01:54 | ED.PDOC ---
History of Present Illness HPI Comments 40-year-old female with past medical history of asthma presenting for numerous complaints over the past couple of months. Patient reporting recurrent abdominal pain, associated nausea and vomiting. Symptoms typically worsened with eating. Was admitted here 2 months ago for the same, that time had a CT scan with no obvious acute intra-abdominal process, however, thought to be constipated, treated for such. States that she is still getting similar discomfort. Patient also reports numerous aches and pains throughout her entire body. She reports pain that comes and goes along the left side of the face and the left side of the neck. Also reports intermittent pain along her bilateral h ips and her legs. She was recently seen by her primary care doctor for the same, just saw them in clinic 1 week ago. She also had numerous imaging studies performed within the past month for these symptoms. She had a DEXA scan that was normal. She had a CT of the chest with no evidence of acute process. She had x-rays of her feet which showed calcaneal spurs. Chief Complaint: General Weakness Time Seen by MD: 23:03 Primary Care Provider: JERRY Allergies: Coded Allergies: Nitrofurantoin (Verified Allergy, Unknown, 06/21/25) Home Meds Active Scripts Polyethylene Glycol (Miralax) 17 Gm/Scoop Pow, 17 GM PO DAILY for 14 Days, #14 POW 0 Refills Prov:CLAY TIWARI 06/25/25 Sucralfate (Carafate) 1 Gm/10 Ml Leslie, 10 ML PO BID for 10 Days, #200 ML 0 Refills Prov:CLAY TIWARI 06/25/25 Pantoprazole Sodium Sesquihydr (Protonix) 40 Mg Tab, 40 MG PO QAM for 30 Days, #30 TAB 0 Refills Prov:CLAY TIWARI 06/25/25 Mode of Arrival: Ambulatory Past Medical History PAST MEDICAL HISTORY: Asthma, Liver Surgical History: Denies all surgeries GLASS SMOOTHER History: Denies all GLASS SMOOTHER Hx, No Pertinent GLASS SMOOTHER History Family History Family History: Reviewed,noncontributory to illness, No family hx of Cancer, No family hx of DM, No family hx of Heart lorena, No family hx of HTN, No family hx ofKidney lorena, No family hx of Liver lorena, No family hx of Lung lorena, No family hx of Stroke Social History Smoker: Non-Smoker Alcohol: Denies ETOH Use Drugs: Denies Drug Use Lives In: Home Constitutional: denies: chills, diaphoresis, fatigue, fever, malaise, sweats, weakness, others EENTM: denies: blurred vision, double vision, ear bleeding, ear discharge, ear drainage, ear pain, ear ringing, eye pain, eye redness, hearing loss, mouth pain, mouth swelling, nasal discharge, nose bleeding, nose congestion, nose pain, photophobia, tearing, throat pain, throat swelling, voice changes, others Respiratory: denies: cough, hemoptysis, orthopnea, SOB at rest, shortness of breath, SOB with excertion, stridor, wheezing, others Cardiovascular: denies: chest pain, dizzy spells, diaphoresis, Dyspnea on exertion, edema, irregular heart beat, left arm pain, lightheadedness, palpitations, PND, syncope, others Gastrointestinal: reports: abdominal pain, nausea, vomiting; denies: abdomen distended, blood streaked bowels, constipated, diarrhea, dysphagia, difficulty swallowing, hematemesis, melena, poor appetite, poor fluid intake, rectal bleeding, rectal pain, others Genitourinary: denies: abnormal vagina bleeding, burning, dyspareunia, dysuria, flank pain, frequency, hematuria, incontinence, pain, , vagina discharge, urgency, others Neurological: denies: dizziness, fainting, headache, left sided numbness, left sided weakness, numbness, paresthesia, pre-existing deficit, right sided numbness, right sided weakness, seizure, speech problems, tingling, tremors, weakness, others Musculoskeletal: reports: joint pain, muscle pain, neck pain; denies: back pain, gout, joint swelling, muscle stiffness, others Integumetry: denies: bruises, change in color, change in hair/nails, dryness, laceration, lesions, lumps, rash, wounds, others Allergic/Immunocompromised: denies: Difficulty Healing, Frequent Infections, Hives, Itching, others Hematologic/Lymphatic: denies: anemia, blood clots, easy bleeding, easy bruisin g, swollen glands, others Endocrine: denies: excessive hunger, excessive sweating, excessive thirst, excessive urination, flushing, intolerance to cold, intolerance to heat, unexplained weight gain, unexplained weight loss, others Psychiatric: denies: anxiety, bipolar disorder, depression, hopeless, panic disorder, schizophrenia, sleepless, suicidal, others All Other Systems: Reviewed and Negative Physical Exam General Appearance: No Apparent Distress, Normal HEENT: Normal ENT Inspection, Pharynx Normal, TMs Normal Neck: Full Range of Motion, Normal, Normal Inspection, Other (Tenderness to palpation along the left lateral trapezius muscle) Respiratory: Chest Non-Tender, Lungs Clear, No Accessory Muscle Use, No Respiratory Distress, Normal Breath Sounds Cardiovascular: No Edema, No JVD, No Murmur, No Gallop, Normal Peripheral Pulses, Regular Rate/Rhythm Breast Exam: Deferred Gastrointestinal: No Organomegaly, Non Tender, No Pulsatile Mass, Normal Bowel Sounds, Soft Genitalia: Deferred Pelvic: Deferred Rectal: Deferred Extremities: No calf tenderness, Normal capillary refill, Normal inspection, Normal range of motion, Non-tender, No pedal edema Musculoskeletal : Apperance: Normal Neurologic: Alert, photo studio assistant II-XII nml as Tested, No Motor Deficits, Normal Affect, Normal Mood, No Sensory Deficits Cerebellar Function: Normal Reflexes: Normal Skin: Dry, Normal Color, Warm Lymphatic: No Adenopathy Was a procedure done? Was a procedure done?: No Differential Dx Considerations may include: Abdominal pain: Gastritis versus peptic ulcer disease versus reflux versus pancreatitis versus IBS versus constipation; Neck Pain: Degenerative disc disease, muscular spasm X-Ray, Labs, Meds, VS Vital Signs Date Time Temp Pulse Resp B/P (MAP) Pulse Ox O2 Delivery O2 Flow Rate FiO2 08/17/25 01:13 98.3 82 14 109/76 (87) 98 98.3 08/16/25 22:54 97.9 93 16 117/89 100 97.9 Lab Test 08/16/25 23:59 08/16/25 23:19 Range/Units Urine Color Yellow Yellow Urine Clarity Turbid H Clear Urine pH 6.0 5.0-9.0 Urine Specific [place] 1.025 1.001-1.035 Urine Protein Trace H Negative Urine Ketones 1+ H Negative Urine Blood Negative Negative /uL Urine Nitrite Negative Negative Urine Bilirubin Negative Negative Urine Urobilinogen Normal Negative mg/dL Urine Leukocyte Esterase 2+ Negative /uL Urine RBC 2 0 - 4 /hpf Urine Microscopic WBC 6 H 0-5 /HPF Urine Squamous Epithelial Cells Mod <5 /hpf Urine Bacteria None seen None Seen /hpf Urine Mucus Few None Seen Urine Glucose Normal Normal mg/dL Urine Test Negative Negative Urine Opiates Screen Pending Urine Fentanyl Screen Pending Urine Barbiturates Screen Pending Urine Phencyclidine Screen Pending Urine Amphetamines Screen Pending Urine Benzodiazepines Screen Pending Urine Cocaine Screen Pending Urine Cannabinoids Screen Pending White Blood Count 9.8 4.4-10.8 10^3/uL Red Blood Count 4.69 4.0-5.20 10^6/uL Hemoglobin 14.3 12.2-16.2 g/dL Hematocrit 43.5 36.0-46.0 % Mean Corpuscular Volume 92.7 80.0-100.0 fL Mean Corpuscular Hemoglobin 30.6 28.0-32.0 pg Mean Corpuscular Hemoglobin Concent 33.0 32.0-36.0 g/dL Red Cell Distribution Width 13.2 11.8-14.3 % Platelet Count 368 140-450 10^3/uL Mean Platelet Volume 6.9 6.9-10.8 fL Neutrophils (%) (Auto) 62.5 37.0-80.0 % Lymphocytes (%) (Auto) 27.8 10.0-50.0 % Monocytes (%) (Auto) 6.5 0.0-12.0 % Eosinophils (%) (Auto) 2.8 0.0-7.0 % Basophils (%) (Auto) 0.4 0.0-2.0 % Neutrophils # (Auto) 6.1 1.6-8.6 10 ^3/uL Lymphocytes # (Auto) 2.7 0.4-5.4 10 ^3/uL Monocytes # (Auto) 0.6 0-1.3 10 ^3/uL Eosinophils # (Auto) 0.3 0-0.8 10 ^3/uL Basophils # (Auto) 0 0-0.2 10 ^3/uL Nucleated Red Blood Cells 0.1 % Sodium Level 140 136-145 mmol/L Potassium Level 3.9 3.5-5.1 mmol/L Chloride Level 105 98-107 mmol/L Carbon Dioxide Level 27 20-31 mmol/L Anion Gap 8 5-15 Blood Urea Nitrogen 7 L 9-23 mg/dL Creatinine 0.84 0.550-1.02 mg/dL Glomerular Filtration Rate Calc 91 >90 mL/min BUN/Creatinine Ratio 8.3 L 10.0-20.0 Serum Glucose 111 H 74-106 mg/dL Calcium Level 9.1 8.7-10.4 mg/dL Total Bilirubin 0.6 0.2-1.0 mg/dL Aspartate Amino Transferase (AST) 18 13-40 U/L Alanine Aminotransferase (ALT) 15 7-40 U/L Alkaline Phosphatase 107 46-116 U/L Total Protein 8.0 5.7-8.2 g/dL Albumin 4.5 3.2-4.8 g/dL Lipase 34 12-53 U/L Current Medications Medications (Trade) Dose Ordered Sig/Jesus Route Start Time Stop Time Status Last Admin Acetaminophen (Tylenol Tablet Or Capsule) 1,000 mg ONCE ONCE PO 08/16/25 23:15 08/16/25 23:16 DC 08/17/25 01:17 Ketorolac Tromethamine (Toradol Injection) 30 mg ONCE ONCE IM 08/16/25 23:15 08/16/25 23:16 DC 08/17/25 01:17 Famotidine (Pepcid Tablet) 20 mg ONCE ONCE PO 08/16/25 23:15 08/16/25 23:16 DC 08/17/25 01:17 Ondansetron HCl (Zofran Po) 4 mg ONCE ONCE PO 08/16/25 23:15 08/16/25 23:16 DC 08/17/25 01:17 Time of 1ST Reevaluation: 01:51 Reevaluation 1ST: Improved Patient Education/Counseling: Diagnosis, Treatment, Need For Follow Up Family Education/Counseling: Diagnosis, Treatment, Need For Follow Up SEPSIS Sepsis Screen Date sepsis recognized/suspect: Aug 17, 2025 Time Sepsis recognized/suspect: 0125 Recent Procedure: No On Antibiotic Therapy: No Respiratory Rate >20: No Heart Rate >90: No Temp<36 C (96.8 F) or >38.3 C: No SBP <90 or MAP <65 mmHG: No New Acute Mental Status Change: No Is the patient on CPAP, BIPAP,: No Physician Orders Drug Screen (08/16/25 23:13) Alum & Mag Hydrox-Simethicone (Maalox Pl (08/17/25 02:00) Lidocaine 2% Viscous (Xylocaine 2% Visco (08/17/25 02:00) Sucralfate Tab (Carafate Tab) (08/17/25 02:00) Cyclobenzaprine Tablet (Flexeril Tablet) (08/17/25 02:00) Vital Signs Date Time Temp Pulse Resp B/P (MAP) Pulse Ox O2 Delivery O2 Flow Rate FiO2 08/17/25 01:13 98.3 82 14 109/76 (87) 98 98.3 08/16/25 22:54 97.9 93 16 117/89 100 97.9 Laboratory Tests Test 08/16/25 23:19 White Blood Count 9.8 10^3/uL (4.4-10.8) Medications Medications Dose Ordered Sig/Jesus Route Start Time Stop Time Status Last Admin Dose Admin Acetaminophen 1,000 mg ONCE ONCE PO 08/16/25 23:15 08/16/25 23:16 DC 08/17/25 01:17 Famotidine 20 mg ONCE ONCE PO 08/16/25 23:15 08/16/25 23:16 DC 08/17/25 01:17 Ketorolac Tromethamine 30 mg ONCE ONCE IM 08/16/25 23:15 08/16/25 23:16 DC 08/17/25 01:17 Ondansetron HCl 4 mg ONCE ONCE PO 08/16/25 23:15 08/16/25 23:16 DC 08/17/25 01:17 Departure 1 Departure Time of Disposition: 02:02 (40-year-old female with past medical history of asthma presenting for numerous complaints over the past couple of months. Patient reporting recurrent abdominal pain, nausea, vomiting, symptoms typically worsened with eating. Was already seen here 2 months ago and admitted for the same with a CT of the abdomen and pelvis that did not show any acute intra- abdominal process, did show some constipation. Given pain that is typically worsened with eating and associated nausea and vomiting could be consistent with gastritis, peptic ulcer disease, reflux. Patient has no abdominal distention, still passing flatus from below, had prior normal CT of the abdomen and pelvis, does not require repeat CT imaging of the abdomen and pelvis today as I do not suspect any acute emergent intra-abdominal process. Patient with no specific urinary symptoms, urinalysis does not seem consistent with a UTI. Does not have any radiation of pain from front to the back, lipase within normal limits, does not seem concerning for acute pancreatitis. Patient with no known history of gallstones, has no focal right upper quadrant tenderness, does not seem concerning for acute biliary process. CBC with no evidence of critical leukocyt osis or significant anemia. CMP with no evidence of any acute electrolyte abnormalities, patient with normal liver function tests as well. Prior imaging showed hepatic steatosis, likely related to the patient's body habitus. As for the patient's neck pain, body aches, suspect likely arthritis, degenerative disc disease. Patient has normal neuro, motor function, no signs concerning for any acute cervical cord compromise, for this reason does not warrant emergent imaging of the cervical spine. Patient with no recent trauma, injury, has no midline C-spine tenderness, does not require any CT imaging of the cervical spine as I do not suspect underlying fractures. The patient was given IM Toradol, oral Tylenol, Flexeril for likely muscular pain. Was given oral Pepcid, ODT Zofran, Maalox, viscous lidocaine, sucralfate for likely stomach related discomfort. Patient is hemodynamically stable here. Given reassuring workup today and symptoms have been recurring for months she is stable for discharge further outpatient management. She is advised to follow up with her primary care doctor for further workup. Will be given a prescription for Tylenol, Maalox, Pepcid.) Impression: Primary Impression: Nausea & vomiting Additional Impressions: Abdominal pain Neck pain Disposition: HOME / SELF CARE / HOMELESS Condition: Stable Additional Instructions: You were evaluated today for your recurrent abdominal pain, nausea, vomiting. When you were admitted to this hospital 2 months ago you had constipation, however, no other acute intra-abdominal process. Please be aware that your symptoms may be related to stomach issues. You may need a referral from your primary care doctor to see a replanting machine crewman to get an endoscopy to further evaluate. You were given a prescription for some medications to start taking in case you have stomach issues such as gastritis, ulcers. Your neck pain and other bony pains may be related to arthritis, degenerative disc disease. You may take Tylenol, ibuprofen as needed for discomfort. Please follow up with your outpatient primary care doctor for further workup and management of these symptoms. e-Prescriptions Acetaminophen (Acetaminophen Extra Stren) 500 Mg Tab 1000 MG PO Q8HPRN PRN, #50 TAB Prov: SARANYA MATTHEW MD 08/17/25 Alum & Mag Hydrox-Simethicone (Maalox Plus) 30 Ml Ss 30 ML PO BID PRN for 7 Days, #240 ML Prov: SARANYA MATTHEW MD 08/17/25 Famotidine (PEPCID TABLET) 20 Mg Tb 1 TAB PO DAILY for 30 Days, #30 TAB 5 Refills Prov: SARANYA MATTHEW MD 08/17/25 Discharged With: Self Critical Care Note Critical Care Time?: No Stability Stability form required: No SARANYA MATTHEW MD Aug 17, 2025 01:54
[2025-08-17] MEDS: SUCRALFATE 1 GM TAB PO ONE (02:00)
[2025-08-17] MEDS: CYCLOBENZAPRINE HCL 10 MG TAB PO ONE (02:00)
[2025-08-17] MEDS: MAALOX PLUS or MAALOX 30 ML PO ONE (02:00)
[2025-08-17] MEDS: LIDOCAINE VISCOUS 2% 15ML UD PO ONE (02:00)
[2025-08-17] MEDS ORDERED: FAMO20TA10 PO (02:02)
[2025-08-17] MEDS ORDERED: MAA30LQ PO (02:02)
[2025-08-17] MEDS ORDERED: ACET-6 PO (02:06)
[2025-08-17 02:16] VITALS: TEMP 98.8
[2025-08-17 03:43] LABS: Amphetamine Screen, Urine Neg (NEGATIVE); Benzodiazephine Screen, Urine Neg (NEGATIVE); Cannabinoid Screen, Urine Pos (NEGATIVE); Cocaine Screen, Urine Neg (NEGATIVE); Opiate Scree,Urine Neg (NEGATIVE); Phencyclidine Screen, Urine Neg (NEGATIVE)
[2025-08-17 04:31] LABS: Barbiturate Scree,Urine Neg (NEGATIVE)
== END 2025-08-17 02:31 | disposition home or self-care (01) ==
LOC: ER 22:51
DX: R10.9 Unspecified abdominal pain (principal); R11.2 Nausea with vomiting, unspecified; M54.2 Cervicalgia; J45.909 Unspecified asthma, uncomplicated; Z79.899 Other long term (current) drug therapy; Z88.1 Allergy status to other antibiotic agents
CPT/HCPCS: 36415; 80053; 80307; 81001; 81025; 83690; 85025; 96372; 99284; J1885; Q0162